=== PATIENT | male | born 1945 | race Caucasian/White ===

== ENCOUNTER → 2018-04-05 11:12 | Outpatient (CLI) | payer MEDICARE, SELFPAY ==
[2018-04-05 17:33] LABS: Absolute Lymphocyte Count 1.78 X10^3/ul (0.83-4.51); Basophil# 0.04 X10^3/uL; Basophil% 0.7 % (0-1); Eosinophil# 0.16 X10^3/uL; Eosinophils% 2.9 % (0-5); Hematocrit 47.8 % (40-54); Hemoglobin 15.4 g/dl (13.0-16.5); Lymphocyte # 1.78 X10^3/ul (4.0); Lymphocyte % 32.2 % (19-41); Mean Corp Hgb Conc 32.2 g/gl (32-36); Mean Corpuscular Hgb 30.2 pg (27.0-32.0); Mean Corpuscular Volume 93.7 fL (80-94); Mean Platelet Vol. 10.3 fl (6.2-12.0); Monocyte# 0.57 X10^3/uL; Monocyte% 10.3 % (0-10); Neutrophil # 2.97 X10^3/uL (2.7-7.7); Neutrophil % 53.7 % (47-70); POSITIVE COUNT NO; POSITIVE DIFFERENTIAL NO; POSITIVE MORPHOLOGY NO; Platelet Count 258 K/mm3 (150-450); RBC Distribution Width CV 12.5 % (11.6-14.6); RBC Distribution Width SD 42.4 fl (35.1-43.9); White Blood Count 5.5 K/mm3 (4.4-11.0)
[2018-04-05 17:50] LABS: Vitamin D,25 Hydroxy 34.5 ng/mL (29.95-100.01)
[2018-04-05 18:52] LABS: ALB/GLOB Ratio 1.2 RATIO (0.9-2.4); AST(SGOT) 27 U/L (15-37); Alanine Aminotransfer ALT/SGPT 28 U/L (16-61); Albumin, Serum 4.1 g/dL (3.2-5.0); Alkaline Phosphatase 55 U/L (45-117); Anion Gap 10 (5-15); BUN 19 mg/dL (7-18); Calcium,Total 9.3 mg/dL (8.5-10.1); Chloride 102 mmol/L (98-107); Cholesterol 190 mg/dL (200); Creatinine, Serum 1.19 mg/dL (0.70-1.30); EST Glomerular Filtration Rate 64 mL/min (>60); Est Glom Filt Rate - Afr Amer 78 mL/min (>60); Globulin 3.3 g/dL (2.2-4.2); Glucose 83 mg/dL (74-106); High Density Lipoprotein 63 mg/dL; Potassium 3.9 mmol/L (3.5-5.1); Protein, Total 7.4 g/dL (6.4-8.2); Sodium Level 141 mmol/L (136-145); Triglycerides 72 mg/dL; Very Low Density Lipoprotein 14 mg/dL (5-40)
--- OUTSIDE RECORDS SUMMARY | 2018-05-29 17:07 | XMS RPT_ITS ---
:1945 Author Organization OHIP Care Team Providers Name Role Phone Zachery Greenberg Attending Unavailable Zachery Greenberg Referring Unavailable Alexandrea, Sera Primary Care Unavailable Zachery Greenberg Consulting Unavailable Nurse, Surgery Attending Unavailable Nadia Adrian Referring Unavailable Darinelel, Sera Attending Unavailable Miedel, Sera Primary Care Unavailable Zachery Greenberg Attending Unavailable Zachery Greenberg Referring Unavailable Alexandrea, Sera Primary Care Unavailable Hudson, Andrey W Attending Unavailable No Doctor Assigned, Nodr Primary Care Unavailable Hudson, Andrey W Attending Unavailable No Doctor Assigned, Nodr Primary Care Unavailable Hudson, Andrey W Admitting Unavailable Hudson, Andrey W Admitting Unavailable Hudson, Andrey W Attending Unavailable No Doctor Assigned, Nodr Primary Care Unavailable Hudson, Andrey W Attending Unavailable No Doctor Assigned, Nodr Primary Care Unavailable Hudson, Andrey W Admitting Unavailable Hudson, Andrey W Admitting Unavailable Hudson, Andrey W Attending Unavailable No Doctor Assigned, Nodr Primary Care Unavailable Hudson, Andrey W Attending Unavailable No Doctor Assigned, Nodr Primary Care Unavailable PROBLEMS PROBLEMS DATE TYPE CONDITION / CODE ATTENDING STATUS SOURCE 04/05/2018 Unknown Z00.00 - Sera Lechuga Active [place] Encounter for [facility] medical Repository examination without abnormal findings / Z00.00(ICD-10) 04/05/2018 Unknown D64.9 - Anemia, Sera Lechuga Active [place] unspecified / Community D64.9(ICD-10) Hospital Repository 04/05/2018 Unknown M41.9 - Miedel, Sera Active [place] Scoliosis, Community unspecified / Hospital M41.9(ICD-10) Repository PROCEDURES PROCEDURES No Procedure Records FoundRESULTS RESULTS OPERATIVE REPORT - Observed: 04/13/2018 Status: F Source: [place] ENDOSCOPY 10:12 AM [facility] REPOSITORY [facility] Medical Records Department [address] [place] [address] Operative Report - Endoscopy MR#: [id number] Acct: [id number] Name: TREVOR MERRITT Rep #: [id number] : 1945 72 From: Zachery Greenberg MD PCP: Sera Lechuga MD Status: REG [facility] Patient Name: Trevor Merritt Procedure Date: 04/13/2018 9:31 AM Date of : 1945 Age: 72 Procedure: Colonoscopy Indications: Screening for colorectal malignant neoplasm Providers: Zachery Greenberg MD Referring MD: Sera Lechuga Medicines: Monitored Anesthesia Care Patient Profile: This is a 72 year old male. Refer to note in patient chart for documentation of history and physical. Last Colonoscopy: more than 10 years ago. Complications: No immediate complications. Procedure: Pre-Anesthesia Assessment: - Prior to the procedure, a History and Physical was performed, and patient medications and allergies were reviewed. The patient's tolerance of previous anesthesia was also reviewed. The risks and benefits of the procedure and the sedation options and risks were discussed with the patient. All questions were answered, and informed consent was obtained. Prior Anticoagulants: The patient has taken no previous anticoagulant or antiplatelet agents. After reviewing the risks and benefits, the patient was deemed in satisfactory condition to undergo the procedure. After I obtained informed consent, the scope was passed under direct vision. Throughout the procedure, the patient's blood pressure, pulse, and oxygen saturations were monitored continuously. The Colonoscope was introduced through the anus and advanced to the cecum, identified by the appendiceal orifice, ileocecal valve and palpation. The colonoscopy was performed without difficulty. The patient tolerated the procedure well. The quality of the bowel preparation was good. Scope In: 9:50:07 AM Scope Withdrawal Time 0 hours 8 minutes 28 seconds Scope Out: 10:05:42 AM Total Procedure Duration Time 0 hours 15 minutes 35 seconds Findings: The entire examined colon appeared normal on direct and retroflexion views. Impression: - The entire examined colon is normal on direct and retroflexion views. - No specimens collected. Recommendation: - Discharge patient to home. - Resume previous diet. - Continue present medications. - Repeat colonoscopy is not recommended due to current age (66 years or older) for screening purposes. Procedure Code(s): --- Professional --- G0121, Colorectal cancer screening; colonoscopy on individual not meeting criteria for high risk Diagnosis Code(s): --- Professional --- Z12.11, Encounter for screening for malignant neoplasm of colon CPT copyright 2017 [employer]. All rights reserved. The codes documented in this report are preliminary and upon bicycle service technician review may be revised to meet current compliance requirements. Zachery Greenberg MD 04/13/2018 10:12:44 AM This report has been signed electronically. Number of Addenda: 0 Note Initiated On: 04/13/2018 9:31 AM 04/13/18 1012 Date Zachery Greenberg MD Cosigner Signature: Date (if indicated) CC: Zachery Greenberg MD; Sera Lechuga MD Date Dictated: 04/13/18930 Date Transcribed: Safety Director: MICHAEL Signed HISTORY AND PHYSICAL Observed: 04/13/2018 Status: F Source: [place] EXAM 9:42 AM [facility] REPOSITORY [facility] Medical Records Department [address] [place] [address] [place] [address] History and Physical 04/13/18 0941 MR#: [id number] Acct: [id number] Name: TREVOR MERRITT Rep #: [id number] : 1945 72 From: Zachery Greenberg MD PCP: Sera Lechuga MD Status: REG [facility] Y Location: [place] [address] History of Present Illness Date of Admission: 04/13/18 The patient is a 72 year old M here for screening colonoscopy. His last colonoscopy was 12 years ago. There were no polyps. He has no family history of colon cancer. He is not having any abdominal pain or blood in his stool. Past Medical/Surgical History - Planned Operation Planned Operative Procedure/s: CSCOPE OPEN ACCESS Date of Operative Procedure: 04/13/18 Permit Signed: No S.O.S: No Is This Patient Having a Total Joint: No - Previous Hospitalizations/Surgeries HX Hospitalizations: No HX of Surgeries: BILAT HERNIA REPAIR. LEFT INGUINAL HERNIA REPAIR. JAW FX. CSCOPE. MICRODISKECTOMY. FX COLLARBONE Any Problems With Anesthesia: Yes - TROUBLES WITH URINATION AFTER You/Your Family Experience Fever (Hyperthermia) With Anes: No Cholinesterase deficiency: No - Cardiovascular Hx Chest Pain within Last 2 months: No Hx of Irregular Heartbeat and/or Afib: No Hx Heart Attack: No Hx Congestive Heart Failure: No Hx Rheumatic Fever: No Hx Hypertension: No Hx Internal Defibrillator: No Hx Pacemaker: No Hx Cardiac Catheterization: No Hx Cardiac Surgery/Stents/Etc.: No Hx Stress Test: No HX Edema: No Hx Pain in Legs when Walking/Leg Cramps: Yes - OCC CRAMPS - Respiratory Chronic Cough: No HX of Shortness of Breath: No Hoarseness: No Hx Chronic Obstructive Pulmonary Disease (COPD): No Hx Asthma: No Hx Emphysema: No Hx Sleep Apnea: No Hx Oxygen Use at Home: No Hx Respiratory Tract Infection/Cold (presently): No Do You Snore Loudly (louder than talking or can be heard): Yes Do You Often Feel Tired/ Fatigued/ Sleepy Dring Daytime?: No Has Anyone Observed You Stop Breathing During Sleep?: No Result (for STOP score): Negative Hx Smoking: Yes - QUIT 1969 Smoking Status: Former smoker - Gastrointestinal Hx Gastroesophageal Reflux: No Hx Gastrointestinal Disorders: No Hx Gastrointestinal Bleed: No Hx Ulcer: No Hx Hiatal Hernia: No Difficulty Chewing/Swallowing: No Recent Onset of Swallowing Problems: No Special diet followed at home: No Hx Unplanned Weight Loss of 20#: No HX Unplanned Weight Gain of 20#: No - Neurological Hx Seizures: No HX Syncope/Blackout Spells/Unconsciousness: No Hx CVA/Stroke: No Hx Transient Ischemic Attacks (TIA): No Hx Multiple Sclerosis: No Hx Parkinson's Disease: No Hx Head/Neck Injury: No Hx Headaches: No Hx Back Injury/Pain: Yes - MICRODISKECTOMY IN THE PAST/OCC BACK PAIN Recent Onset of Speech Difficulty: No Restless Legs: No Does patient have nerve stimulator: No Patient instructed to have device shut off: No Rep notified?: No - Blood Disorder Hx Leukemia: No Bleeding Tendencies: No Hx Deep Vein Thrombosis: No Hx High Cholesterol: No Blood Transmitted Disease: No Hx Hepatitis: No Hx Cirrhosis: No Hx Anemia: Yes - IN THE PAST Hx Blood Disorders: No - Genitourinary Hx Renal Disease: No - ENLARGED PROSTATE - Musculoskeletal Hx Arthritis: No Hx Rheumatoid Arthritis: No Hx Gout: No Recent Onset of an Orthopedic Problem: No - Endocrine Hx Diabetes: No Thyroid Disease: No Hx Steroid Therapy: No - Psycho/Social Hx Substance Use: No Hx Alcohol Use: Yes - OCC Hx Anxiety: No Hx Depression: No Mental Illness: No Hx Dementia: No - Miscellaneous Hx Cancer: No Recent Exposure to Contagious Disease: No Active MRSA: No Hx of C-Diff: No Any Loose Teeth: No Allergies bisacodyl [From Dulcolax (bisacodyl)] Allergy (Mild, Verified 04/12/18 16:12) itching polyethylene glycol 3350 [From Miralax] Allergy (Mild, Verified 04/12/18 16:12) itching hydrocodone [From [place]] Allergy (Verified 04/12/18 09:26) Hives - Discharge Is Pt Admitted From a Skilled Nursing, or a [facility]: No Who Could Help: After D/C, Where Do you Plan to Go: Return Home - From the PAT History Number of Risk Factors: 3 - Physical Exam General: Alert, Oriented x3 Lungs: Normal air movement Cardiovascular: Regular rate, Regular Rhythm Abdomen: Soft, Non Tender, Non-Distended Vital Signs Temp Pulse Resp BP Pulse Ox 97.8 F 72 18 125/69 H 99 04/13/18 08:36 04/13/18 08:36 04/13/18 08:36 04/13/18 08:36 04/13/18 08:36 Oxygen Delivery Method Room Air Weight: 148 lb 9.465 oz Body Mass Index (BMI) 21.6 Assessment/Plan 72-year-old male for screening colonoscopy 1. I explained endoscopy in detail to the patient. I explained the risks including but not limited to stroke or heart attack with anesthesia, perforation of the GI tract, bleeding, infection. I explained that any of these could necessitate further emergency surgery. The patient understands and all questions were answered sufficiently. The patient wishes to proceed with procedure. Zachery Greenberg MD Pager: [facility] [address] [place] [address] [address] [place] [address] Office: Surgery Risks - Colonoscopy Risks Include but are not Limited To: Risks include but are not limited to: Bleeding, perforation requiring further surgery, inability to complete colonoscopy requiring barium enema. 04/13/18 0942 <Electronically signed by Zachery Greenberg MD> Date Zachery Greenberg MD Cosigner Signature: Date (if applicable) CC: Zachery Greenberg MD; Sera Lechuga MD Signed CBC W/DIFF, AUTOMATED Collected: 04/05/2018 Status: F Source: [place] 11:16 AM [facility] REPOSITORY TYPE CODE TESTS RESULT OUT OF RANGE REFERENCE UNITS LAB L100.1000 4.4-11.0 K/mm3 Normal WBC 5.5 LAB L100.1200 4.6-6.2 M/mm3 Normal RBC 5.10 LAB L100.1300 13.0-16.5 g/dl Normal HGB 15.4 LAB L100.1400 40-54 % Normal HCT 47.8 LAB L100.1500 80-94 fL Normal MCV 93.7 LAB L100.1600 27.0-32.0 pg Normal MCH 30.2 LAB L100.1700 32-36 g/gl Normal MCHC 32.2 LAB L100.1810 11.6-14.6 % Normal RDW CV 12.5 LAB L100.1820 35.1-43.9 fl Normal RDW SD 42.4 LAB L100.1900 150-450 K/mm3 Normal PLT 258 LAB L100.2000 6.2-12.0 fl Normal MPV 10.3 LAB L100.2100 47-70 % Normal NEUT% 53.7 LAB L100.2200 19-41 % Normal LY% 32.2 LAB L100.2300 0-10 % High MONO% 10.3 LAB L100.2400 0-5 % Normal EO% 2.9 LAB L100.2500 0-1 % Normal BASO% 0.7 LAB L100.2550 0.0-0.9 % Normal IM GRAN % 0.200 Result Comment: IG% - Immature Granulocytes (promyelocytes, myelocytes and metamyelocytes) > 1% indicates that a LEFT SHIFT is Present. LAB L100.2620 2.0-7.7 X10 3/uL Normal Absolute Neut 3.0 LAB L100.2720 0.83-4.51 X10 3/ul Normal Absolute Lymph 1.78 Performed By: #### L100.0100 #### [facility] [address] [facility] [place], [address] VITAMIN D,25 HYDROXY Collected: 04/05/2018 Status: F Source: [place] 11:16 AM [facility] REPOSITORY TYPE CODE TESTS RESULT OUT OF RANGE REFERENCE UNITS LAB L506.1000 29.95-100.01 ng/mL Normal Vitamin D 34.5 25-OH Result Comment: Vitamin D 25(OH) Status Range Deficiency <20 ng/mL (50nmol/L) Insuffciency 20 - 30 ng/mL (50 - 75 nmol/L) Sufficiency 30 - 100 ng/mL (75 - 250 nmol/L) Toxicity >100 ng/mL (>250 nmol/L) Performed By: #### L506.1000 #### [facility] [address] [facility] [place], [address] COMPREHENSIVE METABOLIC Collected: 04/05/2018 Status: F Source: [place] CORTEZ 11:16 AM [facility] REPOSITORY TYPE CODE TESTS RESULT OUT OF RANGE REFERENCE UNITS LAB L501.0100 74-106 mg/dL Normal GLU 83 Result Comment: Please note revised GLUCOSE reference range effective 2017. LAB L501.1000 7-18 mg/dL High BUN 19 LAB L501.1100 0.70-1.30 mg/dL Normal CREAT,SERUM 1.19 Result Comment: The validity of the calculated GFR AND GFRAA in patients over 70 years has not been determined. Clinical correlation is essential. LAB L501.1110 >60 mL/min Normal EST GFR 64 Result Comment: Non- GFR Calc LAB L501.1115 >60 mL/min Normal EST GFR - AA 78 Result Comment: GFR Calc LAB L501.1300 10-20 RATIO Normal BUN/CRE 16.0 LAB L501.1500 6.4-8.2 g/dL T Normal PROT 7.4 LAB L501.1800 3.2-5.0 g/dL Normal ALB 4.1 LAB L501.1950 2.2-4.2 g/dL Normal GLOB 3.3 LAB L501.2000 0.9-2.4 RATIO Normal A/G 1.2 LAB L501.2200 8.5-10.1 mg/dL CA Normal 9.3 LAB L501.4100 15-37 U/L Normal AST 27 LAB L501.4305 45-117 U/L Normal ALK P 55 LAB L501.4405 16-61 U/L Normal ALT 28 LAB L501.4600 0.20-1.00 mg/dL T Normal BILI 0.80 LAB L501.5300 136-145 mmol/L NA Normal 141 LAB L501.5600 3.5-5.1 mmol/L K Normal 3.9 LAB L501.5900 98-107 mmol/L CL Normal 102 LAB L501.6100 21.0-32.0 mmol/L Normal CO2 29.0 LAB L501.6200 5-15 Normal GAP 10 Performed By: #### L500.4050, L500.4100 #### [facility] [address] [place], [address] LIPID PROFILE Collected: 04/05/2018 Status: F Source: [place] 11:16 AM [facility] REPOSITORY TYPE CODE TESTS RESULT OUT OF RANGE REFERENCE UNITS LAB L501.4900 200 mg/dL Normal CHOL 190 Result Comment: <200 mg/dL Desirable 200-240 mg/dL Borderline >240 mg/dL High Risk LAB L501.5000 mg/dL Normal TRIG 72 Result Comment: The drugs N-Acetylcysteine and Metamizole may falsely depress this assay. Serum Triglycerides Reference Interval Normal <150 mg/dL Borderline high 150 - 199 mg/dL High 200 - 499 mg/dL Very High > or = 500 mg/dL LAB L501.6400 mg/dL Normal HDL 63 Result Comment: The drugs N-Acetylcysteine and Metamizole may falsely depress this assay. Reference Range HDL <40 mg/dL Low HDL Cholesterol HDL >or= 60 mg/dL High HDL Cholesterol LAB L501.6500 0-130 mg/dL Normal LDL 113 LAB L501.6600 5-40 mg/dL Normal VLDL 14 Performed By: #### L500.4050, L500.4100 #### [facility] [address] [place], [place], [address] PSA TOTAL Collected: 11/11/2017 Status: F Source: [place] 8:21 AM [facility] REPOSITORY TYPE CODE TESTS RESULT OUT OF RANGE REFERENCE UNITS LAB 40957695(LO ng/mL INC) Normal PSA Total 5.34 Result Comment: AGE-SPECIFIC REFERENCE RANGES FOR SERUM PSA REFERENCE RANGE NG/ML AGE ASIANS BLACKS WHITE 40-49 0- 2 0-2 0-2.5 50-59 0- 3 0-4 0-3.5 60-69 0- 4 0-4.5 0-4.5 70-79 0- 5 0-5.5 0-6.5 PSA INCREASES WITH AGE, RACE, AND EJACULATION WITHIN 48 HRS. [facility] VOL24,NO.2, , PG.339 Performed By: #### [id number] #### [facility] [address] [place] [address] PSA T+% FR Collected: 04/22/2017 Status: F Source: [place] 8:12 AM [facility] REPOSITORY TYPE CODE TESTS RESULT OUT OF RANGE REFERENCE UNITS LAB 13782758(LO ng/mL INC) Normal PSA Tot. 5.9 Result Comment: No patient age and/or gender provided Age Male Female All Ages 0.0 - 4.0 Not Estab. Jake ECLIA methodology. According to the [employer], Serum PSA should decrease and remain at undetectable levels after radical prostatectomy. The AUA defines biochemical recurrence as an initial PSA value 0.2 ng/mL or greater followed by a subsequent confirmatory PSA value 0.2 ng/mL or greater. Values obtained with different assay methods or kits cannot be used interchangeably. Results cannot be interpreted as absolute evidence of the presence or absence of malignant disease. LAB 80282107(LOINC) N/A ng/mL Normal PSA Free 1.30 Result Comment: Jake ECLIA methodology. LAB 15874665(LOINC) % Normal % Free 22.0 PSA Result Comment: The table below lists the probability of prostate cancer for men with non-suspicious HAILEY results and total PSA between 4 and 10 ng/mL, by patient age (Leela et al, ARIAS 1998, 279:1542). % Free PSA 50-64 yr 65-75 yr 0.00-10.00% 56% 55% 10.01-15.00% 24% 35% 15.01-20.00% 17% 23% 20.01-25.00% 10% 20% >25.00% 5% 9% Please note: Leela et al did not make specific recommendations regarding the use of percent free PSA for any other population of men. Performed At: [facility] [id number] Michelet Ibarra PhD Ph:[phone] Performed By: #### [id number] #### [place] [address] ALLERGIES ALLERGIES DATE TYPE / CODE NAME / CODE REACTION SEVERITY SOURCE 04/12/2018 Drug bisacodyl/C22606425 Itching [place] Allergy/416 2(RXNORM) [place] [id number]([facility] CT) Repository 04/12/2018 Drug hydrocodone/V371359 Hives Unknown [place] Allergy/416 554(RXNORM) [place] [id number]([facility] ED CT) Repository 04/12/2018 Drug polyethylene glycol Itching [place] Allergy/416 3350/J222849362(RXN Community 988601([facility] ED CT) Repository Drug/851694 [facility] 003([facility]) System Repository ENCOUNTERS ENCOUNTERS ADMIT/DISCHARGE ACCOUNT NUMBER ADMITTING ENCOUNTER LOCATION SOURCE CLASS 04/13/2018 [id number] Ambulatory BMSBuilding: [place] BMS.CF.[facility] Repository 04/13/2018/04/13/20 [id number] Amb[place] ding:ENRoom: Repository AC16 04/05/2018 [id number] Ambulatory [facility] ding:BFHLAB Repository 04/05/2018/04/05/20 [id number] Ambulatory BMSBuilding: [place] 18 BMS.[facility] Repository 12/07/2017 [id number] [facility] ing:AMUAshla nd 12/07/2017/12/08/19 [id number] Andrey [facility] Amb[facility] [address] [facility] Repository ing:AMUAshla ndRoom: Room 3 11/11/2017/11/12/19 [id number] Andrey Hudson [address] ding[facility] 11/11/[id number] Repository 06/08/2017/06/08/19 [id number] Andrey [facility] Ambulatory [address] [place] Repository ing:AMUAshla ndRoom: Room 1 04/22/2017/04/22/20 [id number] Andrey Hudson [address] ding[facility] Repository 04/22/2017/04/22/20 [id number] Ambulatory [address] [place] Repository ing:AMUAshla ndRoom: Room 2 PAYERS PAYERS ENCOUNTER GUARANTOR PAYER SUBSCRIBER SOURCE 04/13/2018 TREVOR L Primary TREVOR L [place] [id number] Insurance:MEDICARE AMSTUTZDOB: Community [address] [facility] [id number] Hospital [address] [place] [address], Number: Repository [place] [address]Aof: [id number] Date:2018-04-05 () 04/13/2018 Secondary TREVOR L [place] Insurance:TRANSAMERIC AMSTUTZDOB: Community APolicy Number: [id number] Hospital [id number] Repository Date:[id number] [address] [place] [address], [place] [address]GT: 04/13/2018 Tertiary NOT GIVENUNK [place] Insurance:SELF PAY [facility] Number: Effective Repository Date:2018-04-13 04/13/2018 TREVOR L Primary TREVOR L [place] [id number] Insurance:MEDICARE AMSTUTZDOB: Community [address] [facility] [id number] Hospital [address] [place] [address], Number: Repository [place] [address]Tqy: [id number] Date:2018-04-05 () 04/13/2018 Secondary TREVOR L [place] Insurance:TRANSAMERIC AMSTUTZDOB: Community APolicy Number: [id number] Hospital [id number] Repository Date:[id number] [address] [place] [address]SM: 04/13/2018 Tertiary NOT GIVENUNK [place] Insurance:SELF PAY [facility] Number: Effective Repository Date:2018-04-05 04/05/2018 TREVOR L Primary TREVOR L [place] [id number] Insurance:MEDICARE AMSTUTZDOB: Community [address] A [id number] [place] Number: Repository [address]Tqz: [id number] [phone] () e Date:2018-04-05 04/05/2018 Secondary NOT GIVENUNK [place] Insurance:SELF PAY [facility] INSURANCEPolicy Hospital Number: Effective Repository Date:2018-04-05 04/05/2018 TREVOR L Primary TREVOR L [place] [id number] Insurance:MEDICARE AMSTUTZDOB: [facility] [address] [facility] PART A [facility] [id number] [facility] [place] Number: Repository [id number]: [phone] [id number] [phone] (HP) e Date:2018-04-05 04/05/2018 Secondary NOT GIVENUNK [place] Insurance:SELF PAY [facility] Number: Effective Repository Date:2018-04-05 12/07/2017 TREVOR L Primary TREVOR L [place] AMSTUTZDOB: Insurance:1500 AMSTUTZDOB: [facility] [id number] BOX MEDICARE [id number] System [id number] [place] PRIMARYPolicy Number: [id number] Repository [facility], Effective [place] [id number]: Date:2017-12-07 - [facility] [place], [id number] [place] [id number]: (HP) Name:CD:[id number] [address]FKDGCESJJ, ()Tel: 000 [place] [address]BD: 000-0000 (WP) 12/07/2017 Secondary TREVOR Ureña Insurance:1500 AMSTUTZDOB: [facility] [id number] System LIFE INSURANCE [address] Repository COMPANYPolicy Number: [place] Effective [facility] [place], Date:2017-12-07 - [place] [id number]: [id number] Name:CD:[id number] (HP)Tel: (000) [address] [place], 000-0000 (WP) [place] [address]RL: 12/07/2017 TREVOR L Primary TREVOR L [place] AMSTUTZDOB: Insurance:1500 AMSTUTZDOB: [facility] [id number] BOX MEDICARE [id number] System [id number] [address] PRIMARYPolicy Number: [id number] Repository [place], Effective [place] [id number]: Date:2017-06-08 - [place], [id number] [place] [id number]: (HP) Name:CD:[id number] [address] [address]USABYIJGK, (HP)Tel: (000) [place] [address]ON: 000-0000 (WP) 12/07/2017 Secondary TREVOR L [place] Insurance:1500 AMSTUTZDOB: [facility] [id number] System LIFE INSURANCE [address] Repository COMPANYPolicy Number: [id number] Effective ZAHRA DIAZ, Date:2017-06-08 - [place] [id number]: [id number] Name:CD:[id number] ()Tel: (000) [address], 000-0000 (WP) [place] [address]NY: 11/11/2017 [facility] AMSTUTZDOB: Insurance:MedicarePol AMSTUTZDOB: [facility] [id number] BOX icy Number: Effective [id number] System [id number] [place] Date:2017-11-11 - [address] Repository [place], [id number] [place] [id number]: Name:CD:[id number] B[address] ROADCHIQUISUN[address] [place], [address]38XWMRAVOQRY, [place] [id number]: (HP) [id number]: [phone] (HP) (WP) 11/11/2017 Secondary TREVOR L [place] Insurance:COMMERCIAL AMSTUTZDOB: [facility] INSURANCEPolicy [id number] System Number: Effective [address] Repository Date:2017-11-11 - [place] [id number] [place], Name:CD:[id number] BOX [place] [id number]: [address]en [place] [address]OH: (865) (HP) 000-0000 (WP) 11/11/2017 [facility] [facility] AMSTUTZDOB: Insurance:MedicarePol AMSTUTZDOB: Hospitals [id number] BOX icy Number: [id number] Repository [address] [place], [id number] [address] [place] [id number]: Date:Plan Name:Kathy DIAZ [place] A [id number]: (CD) (HP) 11/11/2017 Secondary [facility] Insurance:MedicarePol AMSTUTZDOB: Hospitals icy Number: [id number] Repository [id number] [address] Date:Plan Name:Kathy DIAZ [place] B [id number]: (HP) 11/11/2017 Tertiary [facility] Insurance:CommercialP AMSTUTZDOB: Hospitals olicy Number: [id number] Repository [id number] [address] Date:Plan [place], [place] Name:HealthPO [id number]: Brady7MIMI MOHAMUD [id number]: [phone]) (HX) [phone] 06/08/2017 [facility] AMSTUTZDOB: Insurance:1500 AMSTUTZDOB: [facility] [id number] BOX MEDICARE [id number] System [id number] [place] PRIMARYPolicy Number: [id number] Repository [address] [place], Effective [place] [id number]: Date:2017-04-22 - [address] [place], [id number] [place] [id number]: (HP) Name:CD:[id number] O [address]BAHOXEIVL, (HP)Tel: (117) [place] [address]KH: [phone] (WP) 06/08/2017 Secondary TREVOR [facility] Insurance:1500 AMSTUTZDOB: [facility] [id number] System LIFE INSURANCE [address] Repository COMPANYPolicy Number: [place] Effective [address] [place], Date:2017-04-22 - [place] [id number]: [id number] Name:CD:[id number] (HP)Tel: (816) [address], [phone] (WP) [place] [address]NV: 04/22/2017 [facility] AMSTUTZDOB: Insurance:MedicarePol AMSTUTZDOB: [facility] [id number] BOX icy Number: Effective [id number] System [id number] [place] Date:2017-04-22 - [address] Repository [address] [place], [id number] [place] [id number]: Name:CD:[id number] [address] [place], 612091ATYFGVHLIM, [place] [id number]: (HP) [id number]: [phone] (HP) (WP) 04/22/2017 Secondary TREVOR [facility] Insurance:COMMERCIAL AMSTUTZDOB: [facility] INSURANCEPolicy [id number] System Number: Effective [address] Repository Date:2017-04-22 - [place] [id number] [address] [place], Name:CD:[id number] BOX [place] [id number]: [address], [place] [address]QL: [phone]) (HP) [phone] (WP) 04/22/2017 TREVOR L Primary [facility] AMSTUTZDOB: Insurance:1500 AMSTUTZDOB: [facility] [id number] BOX MEDICARE [id number] System [id number] SAL PRIMARYPolicy Number: [id number] Repository ZAHRA DIAZ, Effective [place] [id number]: Date:2016-10-24 - [address] [place], 9974-11-47Wwnj [place] [id number]: (HP) Name:CD:[id number] O [address]VIZMGXFOP, (HP)Tel: (767) [place] [address]AA: [phone] (WP) 04/22/2017 Secondary [facility] Insurance:1500 AMSTUTZDOB: [facility] [id number] System LIFE INSURANCE [address] Repository COMPANYPolicy Number: SAL Effective ZAHRA DIAZ, Date:2016-10-24 - [place] [id number]: [id number] Name:CD:[id number] (HP)Tel: (803) [address] [place], [phone] (WP) [place] [address]IF:
== END ==
PROVIDERS: Family Provider Family Medicine; PCP Family Medicine; Visit Provider Family Medicine
DX: Z00.00 Encounter for general adult medical examination without abnormal findings (principal); D64.9 Anemia, unspecified; M41.9 Scoliosis, unspecified
CPT/HCPCS: 36415; 80053; 80061; 82306; 85025

== ENCOUNTER 2018-04-13 08:09 | Day surgery (SDC) | payer MEDICARE, OTHER, SELFPAY ==
[2018-04-13 08:36] VITALS: BP 125/69; PULSE 72; RESP 18; TEMP 36.6; O2SAT 99; BMI 21.6
--- NOTE | 2018-04-13 09:42 | HP.PCM_ITS ---
History of Present Illness Date of Admission: 04/13/18 The patient is a 72 year old M here for screening colonoscopy. His last colonoscopy was 12 years ago. There were no polyps. He has no family history of colon cancer. He is not having any abdominal pain or blood in his stool. Past Medical/Surgical History - Planned Operation Planned Operative Procedure/s: CSCOPE OPEN ACCESS Date of Operative Procedure: 04/13/18 Permit Signed: No S.O.S: No Is This Patient Having a Total Joint: No - Previous Hospitalizations/Surgeries HX Hospitalizations: No HX of Surgeries: BILAT HERNIA REPAIR. LEFT INGUINAL HERNIA REPAIR. JAW FX. CSCOPE. MICRODISKECTOMY. FX COLLARBONE Any Problems With Anesthesia: Yes - TROUBLES WITH URINATION AFTER You/Your Family Experience Fever (Hyperthermia) With Anes: No Cholinesterase deficiency: No - Cardiovascular Hx Chest Pain within Last 2 months: No Hx of Irregular Heartbeat and/or Afib: No Hx Heart Attack: No Hx Congestive Heart Failure: No Hx Rheumatic Fever: No Hx Hypertension: No Hx Internal Defibrillator: No Hx Pacemaker: No Hx Cardiac Catheterization: No Hx Cardiac Surgery/Stents/Etc.: No Hx Stress Test: No HX Edema: No Hx Pain in Legs when Walking/Leg Cramps: Yes - OCC CRAMPS - Respiratory Chronic Cough: No HX of Shortness of Breath: No Hoarseness: No Hx Chronic Obstructive Pulmonary Disease (COPD): No Hx Asthma: No Hx Emphysema: No Hx Sleep Apnea: No Hx Oxygen Use at Home: No Hx Respiratory Tract Infection/Cold (presently): No Do You Snore Loudly (louder than talking or can be heard): Yes Do You Often Feel Tired/ Fatigued/ Sleepy [place] Daytime?: No Has Anyone Observed You Stop Breathing During Sleep?: No Result (for STOP score): Negative Hx Smoking: Yes - QUIT 1969 Smoking Status: Former smoker - Gastrointestinal Hx Gastroesophageal Reflux: No Hx Gastrointestinal Disorders: No Hx Gastrointestinal Bleed: No Hx Ulcer: No Hx Hiatal Hernia: No Difficulty Chewing/Swallowing: No Recent Onset of Swallowing Problems: No Special diet followed at home: No Hx Unplanned Weight Loss of 20#: No HX Unplanned Weight Gain of 20#: No - Neurological Hx Seizures: No HX Syncope/Blackout Spells/Unconsciousness: No Hx CVA/Stroke: No Hx Transient Ischemic Attacks (TIA): No Hx Multiple Sclerosis: No Hx Parkinson's Disease: No Hx Head/Neck Injury: No Hx Headaches: No Hx Back Injury/Pain: Yes - MICRODISKECTOMY IN THE PAST/OCC BACK PAIN Recent Onset of Speech Difficulty: No Restless Legs: No Does patient have nerve stimulator: No Patient instructed to have device shut off: No Rep notified?: No - Blood Disorder Hx Leukemia: No Bleeding Tendencies: No Hx Deep Vein Thrombosis: No Hx High Cholesterol: No Blood Transmitted Disease: No Hx Hepatitis: No Hx Cirrhosis: No Hx Anemia: Yes - IN THE PAST Hx Blood Disorders: No - Genitourinary Hx Renal Disease: No - ENLARGED PROSTATE - Musculoskeletal Hx Arthritis: No Hx Rheumatoid Arthritis: No Hx Gout: No Recent Onset of an Orthopedic Problem: No - Endocrine Hx Diabetes: No Thyroid Disease: No Hx Steroid Therapy: No - Psycho/Social Hx Substance Use: No Hx Alcohol Use: Yes - OCC Hx Anxiety: No Hx Depression: No Mental Illness: No Hx Dementia: No - Miscellaneous Hx Cancer: No Recent Exposure to Contagious Disease: No Active MRSA: No Hx of C-Diff: No Any Loose Teeth: No Allergies bisacodyl [From Dulcolax (bisacodyl)] Allergy (Mild, Verified 04/12/18 16:12) itching polyethylene glycol 3350 [From Miralax] Allergy (Mild, Verified 04/12/18 16:12) itching hydrocodone [From [place]] Allergy (Verified 04/12/18 09:26) Hives - Discharge Is Pt Admitted From a Retirement, or a Residential: No Who Could Help: After D/C, Where Do you Plan to Go: Return Home - From the PAT History Number of Risk Factors: 3 - Physical Exam General: Alert, Oriented x3 Lungs: Normal air movement Cardiovascular: Regular rate, Regular Rhythm Abdomen: Soft, Non Tender, Non-Distended Vital Signs Temp Pulse Resp BP Pulse Ox 97.8 F 72 18 125/69 H 99 04/13/18 08:36 04/13/18 08:36 04/13/18 08:36 04/13/18 08:36 04/13/18 08:36 Oxygen Delivery Method Room Air Weight: 148 lb 9.465 oz Body Mass Index (BMI) 21.6 Assessment/Plan 72-year-old male for screening colonoscopy 1. I explained endoscopy in detail to the patient. I explained the risks including but not limited to stroke or heart attack with anesthesia, perforation of the GI tract, bleeding, infection. I explained that any of these could necessitate further emergency surgery. The patient understands and all questions were answered sufficiently. The patient wishes to proceed with procedure. Zachery Greenberg MD Pager: [facility] [address] [place] [address] [address] [place] [address] Office: Surgery Risks - Colonoscopy Risks Include but are not Limited To: Risks include but are not limited to: Bleeding, perforation requiring further surgery, inability to complete colonoscopy requiring barium enema.
[2018-04-13 10:09] VITALS: BP 125/69; BP 84/54; PULSE 66; RESP 16; TEMP 36.3; O2SAT 93
[2018-04-13 10:10] VITALS: BP 125/69; BP 83/54; PULSE 64; RESP 16; O2SAT 94
--- NOTE | 2018-04-13 10:12 | OP.ENDO_ITS ---
Patient Name: Dorian Merritt Procedure Date: 04/13/2018 9:31 AM Date of : 1945 Age: 72 Procedure: Colonoscopy Indications: Screening for colorectal malignant neoplasm Providers: Zachery Greenberg MD Referring MD: Sera Lechuga Medicines: Monitored Anesthesia Care Patient Profile: This is a 72 year old male. Refer to note in patient chart for documentation of history and physical. Last Colonoscopy: more than 10 years ago. Complications: No immediate complications. Procedure: Pre-Anesthesia Assessment: - Prior to the procedure, a History and Physical was performed, and patient medications and allergies were reviewed. The patient's tolerance of previous anesthesia was also reviewed. The risks and benefits of the procedure and the sedation options and risks were discussed with the patient. All questions were answered, and informed consent was obtained. Prior Anticoagulants: The patient has taken no previous anticoagulant or antiplatelet agents. After reviewing the risks and benefits, the patient was deemed in satisfactory condition to undergo the procedure. After I obtained informed consent, the scope was passed under direct vision. Throughout the procedure, the patient's blood pressure, pulse, and oxygen saturations were monitored continuously. The Colonoscope was introduced through the anus and advanced to the cecum, identified by the appendiceal orifice, ileocecal valve and palpation. The colonoscopy was performed without difficulty. The patient tolerated the procedure well. The quality of the bowel preparation was good. Scope In: 9:50:07 AM Scope Withdrawal Time 0 hours 8 minutes 28 seconds Scope Out: 10:05:42 AM Total Procedure Duration Time 0 hours 15 minutes 35 seconds Findings: The entire examined colon appeared normal on direct and retroflexion views. Impression: - The entire examined colon is normal on direct and retroflexion views. - No specimens collected. Recommendation: - Discharge patient to home. - Resume previous diet. - Continue present medications. - Repeat colonoscopy is not recommended due to current age (66 years or older) for screening purposes. Procedure Code(s): --- Professional --- G0121, Colorectal cancer screening; colonoscopy on individual not meeting criteria for high risk Diagnosis Code(s): --- Professional --- Z12.11, Encounter for screening for malignant neoplasm of colon CPT copyright 2017 [employer] [place] [employer] [employer]. All rights reserved. The codes documented in this report are preliminary and upon molder machine tender review may be revised to meet current compliance requirements. Zachery Greenberg MD 04/13/2018 10:12:44 AM This report has been signed electronically. Number of Addenda: 0 Note Initiated On: 04/13/2018 9:31 AM
[2018-04-13 10:15] VITALS: BP 104/68; BP 125/69; PULSE 65; RESP 16; O2SAT 94
[2018-04-13 10:34] VITALS: BP 118/67; BP 125/69; PULSE 53; RESP 16; TEMP 36.2; O2SAT 98
[2018-04-13 11:02] VITALS: BP 125/69
--- OUTSIDE RECORDS SUMMARY | 2018-05-30 06:05 | XMS RPT_ITS ---
:1945 Author Organization OHIP Care Team Providers Name Role Phone Zachery Greenberg Attending Unavailable Zachery Greenberg Referring Unavailable Miedel, Sera Primary Care Unavailable Zachery Greenberg Attending Unavailable Zachery Greenberg Referring Unavailable Miedel, Sera Primary Care Unavailable Zachery Greenberg Consulting Unavailable Miedel, Sera Attending Unavailable Miedel, Sera Primary Care Unavailable Nurse, Surgery Attending Unavailable Nadia Adrian Referring Unavailable Andrey Hudson Attending Unavailable No Doctor Assigned, Nodr Primary Care Unavailable HudsonAndrey santos W Admitting Unavailable HudsonAndrey Attending Unavailable No Doctor Assigned, Nodr Primary Care Unavailable HudsonAndrey W Admitting Unavailable HudsonAndrey W Admitting Unavailable HudsonAndrey W Attending Unavailable No Doctor Assigned, Nodr Primary Care Unavailable Andrey Hudson W Attending Unavailable No Doctor Assigned, Nodr Primary Care Unavailable HudsonAndrey santos W Admitting Unavailable HudsonAndrey W Attending Unavailable Darinelel, Sera E Primary Care Unavailable PROBLEMS PROBLEMS DATE TYPE CONDITION / CODE ATTENDING STATUS SOURCE 04/05/2018 Unknown Z00.00 - Sera Lechuga Active [place] Encounter for [facility] medical Repository examination without abnormal findings / Z00.00(ICD-10) 04/05/2018 Unknown D64.9 - Anemia, Sera Lechuga Active [facility] unspecified / Community D64.9(ICD-10) Hospital Repository 04/05/2018 Unknown M41.9 - KatherynedelSera Active [place] Scoliosis, Community unspecified / Hospital M41.9(ICD-10) Repository PROCEDURES PROCEDURES No Procedure Records FoundRESULTS RESULTS PSA TOTAL Collected: 05/10/2018 Status: F Source: [place] 8:46 AM [facility] REPOSITORY TYPE CODE TESTS RESULT OUT OF RANGE REFERENCE UNITS LAB 49193669(LO ng/mL INC) Normal PSA Total 5.91 Result Comment: AGE-SPECIFIC REFERENCE RANGES FOR SERUM PSA REFERENCE RANGE NG/ML AGE ASIANS BLACKS WHITE 40-49 0- 2 0-2 0-2.5 50-59 0- 3 0-4 0-3.5 60-69 0- 4 0-4.5 0-4.5 70-79 0- 5 0-5.5 0-6.5 PSA INCREASES WITH AGE, RACE, AND EJACULATION WITHIN 48 HRS. [facility] DANIELA VOL24,NO.2, , PG.339 Performed By: #### [id number] #### MELIZA [employer] [address] [place], [place] [address] OPERATIVE REPORT - Observed: 04/13/2018 Status: F Source: [facility] ENDOSCOPY 10:12 AM [facility] REPOSITORY [facility] Medical Records Department [address] [place] [address]896 Operative Report - Endoscopy MR#: [id number] Acct: [id number] Name: TREVOR MERRITT Rep #: [id number] : 1945 72 From: Zachery Greenberg MD PCP: Sera Lechuga MD Status: [facility] Patient Name: Trevor Merritt Procedure Date: 04/13/2018 [...] malignant neoplasm of colon CPT copyright 2017 [employer]. All rights reserved. The codes documented in this report are preliminary and upon shell maker lockstitch review may be revised to meet current compliance requirements. Zachery Greenberg MD 04/13/2018 10:12:44 AM This report has been signed electronically. Number of Addenda: 0 Note Initiated On: 04/13/2018 9:31 AM 04/13/18 1012 Date Zachery Greenberg MD Cosigner Signature: Date (if indicated) CC: Zachery Greenberg MD; Sera Lechuga MD Date Dictated: 04/13/18 0931 Date Transcribed: Fly Worker: AC Signed HISTORY AND PHYSICAL Observed: 04/13/2018 Status: F Source: [facility]RE[facility] EXAM 9:42 AM [facility] REPOSITORY [facility] Medical Records Department [address] [place] [address] [place] [address] History and Physical 04/13/18 09 MR#: [id number] Acct: [id number] Name: TREVOR MERRITT Rep #: [id number] : 1945 72 From: Zachery Greenberg MD PCP: Sera Lechuga MD Status: [facility] Y Location: [place] [address] History of Present Illness Date of Admission: [...] (Mild, Verified 04/12/18 16:12) itching hydrocodone [From [place]] Allergy (Verified 04/12/18 09:26) Hives - Discharge Is Pt Admitted From a [facility], or a Residential: No Who Could Help: After D/C, Where [...] proceed with procedure. Zachery Greenberg MD Pager: [facility] [address] [place] [address], [address] [place] [address] Office: Surgery Risks - Colonoscopy Risks Include but are not Limited To: Risks include but are not limited to: Bleeding, perforation requiring further surgery, inability to complete colonoscopy requiring barium enema. 04/13/1842 <Electronically signed by Zachery Greenberg MD> Date Zachery Greenberg MD Cosigner Signature: Date (if applicable) CC: Zachery Greenberg MD; Sera Lechuga MD Signed CBC W/DIFF, AUTOMATED Collected: 04/05/2018 Status: F Source: SY[place] 11:16 AM [facility] REPOSITORY TYPE CODE TESTS RESULT OUT OF [...] Lymph 1.78 Performed By: #### L100.0100 #### [facility] [address] [place], [address] VITAMIN D,25 HYDROXY Collected: 04/05/2018 Status: F Source: MCGREW 11:16 AM [facility] REPOSITORY TYPE CODE TESTS RESULT OUT OF RANGE REFERENCE UNITS LAB L506.1000 29.95-100.01 ng/mL Normal Vitamin D 34.5 25-OH Result Comment: Vitamin D 25(OH) Status Range Deficiency <20 ng/mL (50nmol/L) Insuffciency 20 - 30 ng/mL (50 - 75 nmol/L) Sufficiency 30 - 100 ng/mL (75 - 250 nmol/L) Toxicity >100 ng/mL (>250 nmol/L) Performed By: #### L506.1000 #### [facility] [address] [place], [address] COMPREHENSIVE METABOLIC Collected: 04/05/2018 Status: F Source: [facility] 11:16 AM [facility] REPOSITORY TYPE CODE TESTS RESULT OUT OF [...] 10 Performed By: #### L500.4050, L500.4100 #### [facility] [address] [facility] [place], [place], [address] LIPID PROFILE Collected: 04/05/2018 Status: F Source: SYED 11:16 AM [facility] REPOSITORY TYPE CODE TESTS RESULT OUT OF [...] 14 Performed By: #### L500.4050, L500.4100 #### [facility] [address] [place], [place], [address] PSA TOTAL Collected: 11/11/2017 Status: F Source: [place] 8:21 AM [facility] REPOSITORY TYPE CODE TESTS RESULT OUT OF RANGE REFERENCE UNITS LAB [id number](LO ng/mL INC) Normal PSA Total 5.34 Result Comment: AGE-SPECIFIC REFERENCE RANGES FOR SERUM PSA REFERENCE RANGE NG/ML AGE ASIANS BLACKS WHITE 40-49 0- 2 0-2 0-2.5 50-59 0- 3 0-4 0-3.5 60-69 0- 4 0-4.5 0-4.5 70-79 0- 5 0-5.5 0-6.5 PSA INCREASES WITH AGE, RACE, AND EJACULATION WITHIN 48 HRS. [facility] VOL24,NO.2, , PG.339 Performed By: #### [id number] #### MELIZA [employer] [address] [place] [address] ALLERGIES ALLERGIES DATE TYPE / CODE NAME / CODE REACTION SEVERITY SOURCE 04/12/2018 Drug bisacodyl/I28494300 Itching ME [place] Allergy/416 2(RXNORM) [facility] 869976([facility] ED CT) Repository 04/12/2018 Drug hydrocodone/H197125 Hives Unknown [place] Allergy/416 554(RXNORM) [facility] 459004([facility] ED CT) Repository 04/12/2018 Drug polyethylene glycol Itching ME [facility] Allergy/416 3350/E305562886(RXN Community 182155([facility] ED CT) Repository Drug/720932 [place] Confucianist 003([facility]) System Repository ENCOUNTERS ENCOUNTERS ADMIT/DISCHARGE ACCOUNT NUMBER ADMITTING ENCOUNTER LOCATION SOURCE CLASS 05/10/2018/05/10/19 [id number] Andrey Hudson Ambulatory Confucianist Confucianist 19 [facility] ding:[facility] Repository 05/10/2018 [id number] Ambulatory [address] [place] [address] Repository 04/13/2018 [id number] Ambulatory BMSBuilding: [facility] BMS.CF.[facility] Repository 04/13/2018/04/13/20 [id number] Ambulatory [facility] [place] 18 [facility] ding:ENRoom: Repository AC16 04/05/2018 [id number] Ambulatory [place] Syed [facility] ding:BFHLAB Repository 04/05/2018/04/05/20 [id number] Ambulatory BMSBuilding: [place] 18 BMS.[facility] Repository 12/07/2017 [id number] [facility] Repository ing:[place] 12/07/2017/12/08/19 [id number] [facility] [address] [facility] Rep[facility] ing:Omer ndRoom: Room 3 11/11/2017/11/12/19 [id number] Andrey Hudson Ambulatory [address] ding:[facility] Repository 11/11/2017 [id number] Ambulatory [address] [place] [address] Repository 06/08/2017/06/08/19 [id number] Andrey Hudson Ambulatory [address] Repository ing:JAYnayelikatelynn ndRoom: Room 1 PAYERS PAYERS ENCOUNTER GUARANTOR PAYER SUBSCRIBER SOURCE 05/10/2018 TREVOR L Primary TREVOR L Confucianist AMSTUTZDOB: Insurance:MedicarePol AMSTUTZDOB: [facility] [id number] BOX icy Number: Effective [id number] System [id number] SONORA Date:2018-05-10 - [address] Repository [facility] [id number] [place] Name:CD:[id number] BOX [facility] [address]Kak: [id number], [place] [id number]: ([phone]) [phone]: (hp) [phone] (HP) () 05/10/2018 Secondary TREVOR [place] Insurance:COMMERCIAL AMSTUTZDOB: [facility] INSURANCEPoly [id number] System Number: Effective [address] Repository Date:2018-05-10 [place] [id number] [address] [place], Name:CD:[id number] [facility] [place]240[place]IZ[place], [place] [address]Wjj: [address]RW: [phone] (HP) () 05/10/2018 [facility] AMSTUTZDOB: Insurance:MedicarePol AMSTUTZDOB: [facility] [id number] BOX icy Number: [id number] Repository [address] [place], [id number] [address] [place] [id number]: Date:Plan Name:Kathy DIAZ [place] A [id number]: (TA) (HP) 05/10/2018 [facility] Insurance:MedicarePol AMSTUTZDOB: Hospitals icy Number: [id number] Repository [id number] [address] Date:Plan Name:Kathy DIAZ [place] B [id number]: () 05/10/2018 [facility] Insurance:CommercialP AMSTUTZDOB: [facility] olicy Number: [id number] Repository [id number] [address] Date:Plan Name:[facility] [place] [id number]: () 04/13/2018 [facility] Primary TREVOR L [facility] [id number] Insurance:MEDICARE AMSTUTZDOB: [facility] [address] PART A BPolic [id number] Hospital [address] [place], Number: Repository [place] [address]Eab: [id number] Date:2018-04-05 (HP) 04/13/2018 Secondary TREVOR L [place] Insurance:TRANSAMERIC AMSTUTZDOB: [facility] APolic Number: [id number] Hospital [id number] Repository Date:1080-69-19ZXQTCU PROCESSINGPO [address], [place] [address]SZ: 04/13/2018 Tertiary NOT GIVENUNK [facility] Insurance:SELF PAY [facility] Number: Effective Repository Date:2018-04-13 04/13/2018 TREVOR L Primary TREVOR L [facility] [id number] Insurance:MEDICARE AMSTUTZDOB: Community [address] [address] PART A [facility] [id number], Number: Repository [place] [address]Mkr: [id number] Date:2018-04-05 () 04/13/2018 Secondary TREVOR L [place] Insurance:TRANSAMERIC AMSTUTZDOB: Community APolicy Number: [id number] Hospital [id number] Repository Date:3239-99-61[facility] [address] [place] [address]BL: 04/13/2018 Tertiary NOT GIVENUNK [place] Insurance:SELF PAY [facility] Number: Effective Repository Date:2018-04-05 04/05/2018 TREVOR L Primary TREVOR L [facility] [id number] Insurance:MEDICARE AMSTUTZDOB: Community [address] PART A [facility] [id number] Number: Repository [address]Gfr: 330 [id number] [phone] () e Date:2018-04-05 04/05/2018 Secondary NOT GIVENUNK [facility] Insurance:SELF PAY [facility] Number: Effective Repository Date:2018-04-05 04/05/2018 TREVOR L Primary TREVOR L [facility] [id number] Insurance:MEDICARE AMSTUTZDOB: Community [address] PART A [facility] [id number] Number: Repository [id number]: 330 [id number] () e Date:2018-04-05 04/05/2018 Secondary NOT GIVENUNK [facility] Insurance:SELF PAY [facility] Number: Effective Repository Date:2018-04-05 12/07/2017 TREVOR L Primary TREVOR L Confucianist AMSTUTZDOB: Insurance:[facility] AMSTUTZDOB: [facility] [id number] BOX MEDICARE [id number] System [id number] [place] PRIMARYPolicy Number: [id number] Repository [address] [place], Effective [place] [id number]: Date:2017-12-07 - [address] [place], 1764-67-60Retx [place] [id number]: (HP) Name:CD:[id number] O [address]ZJCDCKMPW, ()Tel: (000) [place] [address]FP: 000-0000 (WP) 12/07/2017 Secondary TREVOR L Confucianist Insurance:1500 AMSTUTZDOB: [facility] [id number] System LIFE INSURANCE [address] Repository COMPANYPolicy Number: [place] Effective [address] [place], Date:2017-12-07 - [place] [id number]: [id number] Name:CD:[id number] ()Tel: (000) [address] [place] [address], 000-0000 (WP) [place] [address]VD: 12/07/2017 TREVOR L Primary TREVOR L Confucianist AMSTUTZDOB: Insurance:1500 AMSTUTZDOB: [facility] [id number] BOX MEDICARE [id number] System [id number] [place] PRIMARYPolicy Number: [id number] Repository [address] [place], Effective [place] [id number]: Date:2017-06-08 - [address] [place], 7204-31-05Eabd [place] [id number]: (HP) Name:CD:[id number] O [address]SXDYAEGSJ, ()Tel: (000) [place] [address]PJ: 000-0000 (WP) 12/07/2017 Secondary TREVOR L Confucianist Insurance:1500 AMSTUTZDOB: [facility] [id number] System LIFE INSURANCE [address] Repository COMPANYPolicy Number: [place] Effective [address] [place], Date:2017-06-08 - [place] [id number]: [id number] Name:CD:[id number] (HP)Tel: (000) [address], 000-0000 (WP) [place] [address]SF: 11/11/2017 [facility] AMSTUTZDOB: Insurance:MedicarePol AMSTUTZDOB: [facility] [id number] BOX icy Number: Effective [id number] System [id number] [place] Date:2017-11-11 - [address] Repository ROADCHIQUISUNT [place], 0975-79-16Umfi [facility] [place] [id number]: Name:CD:[id number] [address] [place], 773278DCZCDFUMIW, [place] [address]Rar: (HP) [id number]: [phone] (HP) (WP) 11/11/2017 [facility] Insurance:COMMERCIAL AMSTUTZDOB: [facility] INSURANCETrinity Healthy [id number] System Number: Effective [address] Repository Date:2017-11-11 - SONORA 7988-11-55Fsli [address] [place], Name:CD:[id number] BOX [place] [id number]: [address], [place] [address]LR: (088) (HP) [phone] (WP) 11/11/2017 [facility] AMSTUTZDOB: Insurance:MedicarePol [facility]ITAL[facility]: [facility] [id number] BOX icy Number: [id number] Repository [address] [place], [id number] [address] [place] [id number]: Date:Plan Name:Kathy DIAZ [place] A [id number]: (HP) (HP) 11/11/2017 Secondary [facility] Insurance:MedicarePol AMSTUTZDOB: Hospitals icy Number: [id number] Repository [id number] [address] Date:Plan Name:Kathy DIAZ [place] B [id number]: (HP) 11/11/2017 Tertiary [facility] Insurance:CommercialP AMSTUTZDOB: Hospitals olicy Number: [id number] Repository [id number] [address] Date:Plan [place], [place] Name:HealthPO [address]OX [id number]: [place], [place] [id number]: ([phone]) (HP) [phone] 06/08/2017 [facility] AMSTUTZDOB: Insurance:1500 AMSTUTZDOB: [facility] [id number] BOX MEDICARE [id number] System [id number] [place] PRIMARYPolicy Number: [id number] Repository [address] [place], Effective [place] [id number]: Date:2017-04-22 - [address] [place], 5994-56-97Zkei [place] [id number]: (HP) Name:CD:[id number] [address]CCDEGRLWU, (HP)Tel: (372) [place] [address]HF: [phone] (WP) 06/08/2017 [facility] Insurance:1500 AMSTUTZDOB: [facility] [id number] System LIFE INSURANCE [address] Repository COMPANYPolicy Number: [place] Effective [address] [place], Date:2017-04-22 - [place] [id number]: [id number] Name:CD:[id number] (HP)Tel: (324) [address], [phone] (WP) [place] [address]KR:
== END 2018-04-13 11:06 | disposition home or self-care (01) ==
LOC: EN 08:13 → AC 08:16
PROVIDERS: Family Provider Family Medicine; PCP Family Medicine; Referring Provider Surgery; Visit Provider Surgery
PROC: 0DJD8ZZ Inspection of Lower Intestinal Tract, Via Natural or Artificial Opening Endoscopic (ICD-10-PCS; CPT 45378; principal; 2018-04-13 09:25)
DX: Z12.11 Encounter for screening for malignant neoplasm of colon (principal); Z87.891 Personal history of nicotine dependence
CPT/HCPCS: G0121; J7120

== ENCOUNTER → 2019-04-04 09:47 | Outpatient (CLI) | payer MEDICARE, OTHER, SELFPAY ==
[2019-04-04 12:24] LABS: ALB/GLOB Ratio 1.3 RATIO (0.9-2.4); AST(SGOT) 19 U/L (15-37); Alanine Aminotransfer ALT/SGPT 26 U/L (16-61); Albumin, Serum 3.9 g/dL (3.2-5.0); Alkaline Phosphatase 47 U/L (45-117); Anion Gap 6 (5-15); BUN 20 mg/dL (7-18); BUN/Creat Ratio 17.9 RATIO (10-20); Chloride 105 mmol/L (98-107); Cholesterol 185 mg/dL (200); Creatinine, Serum 1.12 mg/dL (0.70-1.30); EST Glomerular Filtration Rate 69 mL/min (>60); Est Glom Filt Rate - Afr Amer 83 mL/min (>60); Glucose 90 mg/dL (74-106); High Density Lipoprotein 61 mg/dL; Potassium 3.9 mmol/L (3.5-5.1); Protein, Total 6.9 g/dL (6.4-8.2); Sodium Level 141 mmol/L (136-145); Triglycerides 64 mg/dL; Very Low Density Lipoprotein 13 mg/dL (5-40)
[2019-04-04 12:34] LABS: Absolute Lymphocyte Count 1.27 X10^3/uL (0.83-4.51); Absolute Neutrophil Count 2.7 X10^3/uL (2.0-7.7); Basophil# 0.03 X10^3/uL; Basophil% 0.7 % (0-1); Eosinophil# 0.16 X10^3/uL; Eosinophils% 3.5 % (0-5); Hematocrit 44.8 % (40-54); Hemoglobin 14.2 g/dL (13.0-16.5); Lymphocyte # 1.27 X10^3/ul (4.0); Lymphocyte % 27.6 % (19-41); Mean Corp Hgb Conc 31.7 g/dL (32-36); Mean Corpuscular Hgb 30.1 pg (27.0-32.0); Mean Corpuscular Volume 94.9 fL (80-94); Mean Platelet Vol. 10.3 fl (6.2-12.0); Monocyte% 8.7 % (0-10); NRBC Flagged by Analyzer 0 % (0-5); Neutrophil # 2.73 X10^3/uL (2.7-7.7); Neutrophil % 59.3 % (47-70); Platelet Count 207 K/mm3 (150-450); RBC Distribution Width CV 11.9 % (11.6-14.6); RBC Distribution Width SD 41.8 fl (35.1-43.9); Red Blood Count 4.72 M/mm3 (4.6-6.2); White Blood Count 4.6 K/mm3 (4.4-11.0)
== END ==
LOC: LAB.FUTURE 09:51 → BFHLAB 04-05 08:13
PROVIDERS: Family Provider Family Medicine; PCP Family Medicine; Visit Provider Family Medicine
DX: Z00.01 Encounter for general adult medical examination with abnormal findings (principal); D64.9 Anemia, unspecified; M41.9 Scoliosis, unspecified; E78.5 Hyperlipidemia, unspecified
CPT/HCPCS: 36415; 80053; 80061; 85025

== ENCOUNTER → 2020-03-28 08:33 | Outpatient (CLI) | payer MEDICARE, OTHER, SELFPAY ==
[2020-03-28 12:33] LABS: Absolute Lymphocyte Count 1.36 X10^3/uL (0.83-4.51); Absolute Neutrophil Count 2.6 X10^3/uL (2.0-7.7); Basophil# 0.05 X10^3/uL; Basophil% 1.1 % (0-1); Eosinophils% 4.3 % (0-5); Hematocrit 44.4 % (40-54); Hemoglobin 14.1 g/dL (13.0-16.5); Lymphocyte # 1.36 X10^3/ul (4.0); Mean Corp Hgb Conc 31.8 g/dL (32-36); Mean Corpuscular Hgb 29.8 pg (27.0-32.0); Mean Corpuscular Volume 93.9 fL (80-94); Mean Platelet Vol. 10.8 fl (6.2-12.0); Monocyte# 0.47 X10^3/uL; NRBC Flagged by Analyzer 0 % (0-5); Neutrophil % 55.4 % (47-70); Platelet Count 233 K/mm3 (150-450); RBC Distribution Width CV 11.9 % (11.6-14.6); RBC Distribution Width SD 41.5 fl (35.1-43.9); Red Blood Count 4.73 M/mm3 (4.6-6.2); White Blood Count 4.7 K/mm3 (4.4-11.0)
[2020-03-28 12:46] LABS: ALB/GLOB Ratio 1.3 RATIO (0.9-2.4); AST(SGOT) 15 U/L (15-37); Alanine Aminotransfer ALT/SGPT 27 U/L (16-61); Albumin, Serum 3.8 g/dL (3.2-5.0); Alkaline Phosphatase 53 U/L (45-117); Anion Gap 4 (5-15); BUN 17 mg/dL (7-18); BUN/Creat Ratio 16.2 RATIO (10-20); Chloride 107 mmol/L (98-107); Cholesterol 177 mg/dL (200); Creatinine, Serum 1.05 mg/dL (0.70-1.30); EST Glomerular Filtration Rate 74 mL/min (>60); Est Glom Filt Rate - Afr Amer 89 mL/min (>60); Globulin 2.9 g/dL (2.2-4.2); Glucose 98 mg/dL (74-106); High Density Lipoprotein 58 mg/dL; Protein, Total 6.7 g/dL (6.4-8.2); Sodium Level 140 mmol/L (136-145); Triglycerides 74 mg/dL; Very Low Density Lipoprotein 15 mg/dL (5-40)
== END ==
PROVIDERS: PCP Family Medicine; Visit Provider Family Medicine
DX: Z00.01 Encounter for general adult medical examination with abnormal findings (principal)
CPT/HCPCS: 36415; 80053; 80061; 85025

== ENCOUNTER → 2021-05-01 06:21 | Outpatient (CLI) | payer MEDICARE, OTHER, SELFPAY ==
--- NOTE | 2021-05-01 06:27 | ECHOD_ITS ---
Reason For Study: AFIB Procedure This was a 2D Doppler, Color Flow transthoracic echocardiogram. Technically difficult parasternal images. Exam performed in department. Left Ventricle Normal LV size. Left ventricular systolic function is normal. The estimated ejection fraction is 53 %. No regional wall motion abnormalities noted. Right Ventricle Normal RV size. Normal systolic function. Atria Normal left atrium. Normal right atrium. Mitral Valve Normal mitral valve. Tricuspid Valve Normal tricuspid valve. Mild tricuspid valve insufficiency. Aortic Valve Trisinus/trileaflet aortic valve. Pulmonic Valve Normal pulmonic valve. Great Vessels Normal aortic root. The pulmonary artery is normal size. Normal inferior vena cava. Pericardium/Pleural No pericardial effusion. MMode/2D Measurements & Calculations LVIDd: 4.8 cm IVSd: 0.91 cm Ao root diam: 3.7 cm LVIDs: 3.2 cm LVPWd: 0.85 cm RVDd: 4.3 cm FS: 34.4 % LAV(MOD-bp): 66.2 ml LA A4 area: 22.6 cm2 LA dimension(2D): 3.2 cm LAV(MOD-bp) Indexed: 35.5 ml/m2 LAV(MOD-sp2): 63.9 ml LAV(MOD-sp4): 67.3 ml RA A4 area: 14.5 cm2 Doppler Measurements & Calculations Ao V2 max: 116.8 cm/sec LV V1 max: 109.4 cm/sec TR max rafael: 214.9 cm/sec Ao max P.6 mmHg LV V1 max P.9 mmHg TR max P.5 mmHg ECHO/Echo Complete Interpretation Summary Normal LV size. Left ventricular systolic function is normal. The estimated ejection fraction is 53 %. Normal left atrium. Ordering Physician: Garrison Wellington Referring Physician: FAREED MATT Performed By: Ro Vilchis, RDCS, RVT
--- NOTE | 2021-05-01 09:20 | EKG12_ITS ---
Test Reason : AFIB/FLUTTER Blood Pressure : / mmHG Vent. Rate : 065 BPM Atrial Rate : 375 BPM P-R Int : 000 ms QRS Dur : 148 ms QT Int : 430 ms P-R-T Axes : 000 017 011 degrees QTc Int : 447 ms Atrial fibrillation with premature ventricular or aberrantly conducted complexes Right bundle branch block Abnormal ECG Confirmed by LISA MELENDEZ, GARRISON ([id number]), senior editor CANDIDO ADAIR ([id number]) on 05/01/2021 10:02:51 AM Referred By: Garrison Wellington Confirmed By:GARRISON WELLINGTON MD
--- NOTE | 2021-05-01 18:30 | STRESSREP ---
Stress Test Report Exercise myocardial perfusion stress test. 75-year-old male with a history of atrial fibrillation. Stress protocol: Resting EKG demonstrates sinus bradycardia with a rate of 57 bpm normal intervals are noted resting blood pressure is 128/78 mmHg occasional premature ventricular complexes noted. The patient exercised according to regular Yoni protocol for total duration of 10 minutes and 30 seconds. Patient completed 1 minute and 30 seconds into stage IV of the Yoni protocol. The maximum heart rate attained was 131 bpm which was 89% of max impact at heart rate the maximum workload was 13.4 metabolic equivalents. At rest there were no ST or T wave changes noted suggest ischemia and at peak exercise upsloping ST changes only were noted with did not meet the criteria for ischemia. Frequent premature ventricular complexes were noted especially during recovery. The patient was also noted during recovery to have gone into atrial fibrillation with a controlled ventricular response rate. The above appeared to be asymptomatic. The peak blood pressure was 178/64 mmHg. Rate-pressure protocol 16,500 the test was terminated due to the target heart rate being achieved. Myocardial perfusion protocol. 12.0 mCi of technetium 99m sestamibi was injected at rest. The patient exercised according to regular Yoni protocol for total duration of 10 minutes and 30 seconds. At peak exercise 36.0 mCi of technetium 99m sestamibi was injected stress images were obtained stress and rest images were reconstructed and compared in the short axis vertical long horizontal long axis. Gated images were also obtained per Perfusion SPECT analysis: Review of the stress images demonstrate normal uptake of tracer noted in all areas of the myocardium. The resting images similarly demonstrate normal uptake of tracer noted in all areas of the myocardium. No areas of reversibility are noted to suggest ischemia and no previous infarct is noted. Gated SPECT analysis: The gated ejection fraction is 55%. Conclusion: Normal exercise myocardial perfusion stress test at a high workload. Preserved ejection fraction. Atrial fibrillation noted during recovery.
== END ==
PROVIDERS: PCP Family Medicine; Referring Provider Internal Medicine Cardiovascular Disease; Visit Provider Internal Medicine Cardiovascular Disease
DX: I48.91 Unspecified atrial fibrillation (principal); I48.92 Unspecified atrial flutter; R94.31 Abnormal electrocardiogram [ECG] [EKG]; I45.10 Unspecified right bundle-branch block; I36.1 Nonrheumatic tricuspid (valve) insufficiency
CPT/HCPCS: 78452; 93005; 93017; 93306; A9500; A4216

== ENCOUNTER → 2021-10-24 | Outpatient (CLI) | payer MEDICARE, OTHER, SELFPAY ==
[2021-10-24 16:05] LABS: Thyroid Stim Hormone (TSH) 0.81 uIU/mL (0.358-3.74)
== END | disposition home or self-care (01) ==
LOC: LAB 14:36
PROVIDERS: PCP Family Medicine; Visit Provider Nurse Practitioner Gerontology
DX: I48.91 Unspecified atrial fibrillation (principal)
CPT/HCPCS: 36415; 84443

== ENCOUNTER → 2022-04-14 | Outpatient (CLI) | payer MEDICARE, OTHER, SELFPAY ==
[2022-04-14 12:45] LABS: Absolute Lymphocyte Count 1.71 X10^3/uL (0.83-4.51); Absolute Neutrophil Count 3.5 X10^3/uL (2.0-7.7); Basophil# 0.05 X10^3/uL; Basophil% 0.8 % (0-1); Eosinophil# 0.25 X10^3/uL; Eosinophils% 4.1 % (0-5); Hematocrit 45.9 % (40-54); Hemoglobin 14.6 g/dL (13.0-16.5); Lymphocyte # 1.71 X10^3/ul (0.83-4.51); Lymphocyte % 28.4 % (19-41); Mean Corp Hgb Conc 31.8 g/dL (32-36); Mean Corpuscular Hgb 29.7 pg (27.0-32.0); Mean Corpuscular Volume 93.3 fL (80-94); Mean Platelet Vol. 10.6 fl (6.2-12.0); Monocyte# 0.53 X10^3/uL; Monocyte% 8.8 % (0-10); NRBC Flagged by Analyzer 0.3 % (0-5); Neutrophil # 3.46 X10^3/uL (2.7-7.7); Neutrophil % 57.4 % (47-70); Platelet Count 246 K/mm3 (150-450); RBC Distribution Width CV 12.1 % (11.6-14.6); RBC Distribution Width SD 41.5 fl (35.1-43.9); Red Blood Count 4.92 M/mm3 (4.6-6.2)
[2022-04-14 13:03] LABS: ALB/GLOB Ratio 1.3 RATIO (0.9-2.4); AST(SGOT) 23 U/L (15-37); Alanine Aminotransfer ALT/SGPT 30 U/L (16-61); Albumin, Serum 3.9 g/dL (3.2-5.0); Alkaline Phosphatase 55 U/L (45-117); Anion Gap 5 (5-15); BUN 18 mg/dL (7-18); BUN/Creat Ratio 16.1 RATIO (10-20); Calcium,Total 9.3 mg/dL (8.5-10.1); Chloride 103 mmol/L (98-107); Cholesterol 191 mg/dL (200); Creatinine, Serum 1.12 mg/dL (0.70-1.30); EST Glomerular Filtration Rate 68 mL/min (>60); Est Glom Filt Rate - Afr Amer 82 mL/min (>60); Globulin 2.9 g/dL (2.2-4.2); Glucose 106 mg/dL (74-106); High Density Lipoprotein 63 mg/dL; Protein, Total 6.8 g/dL (6.4-8.2); Sodium Level 138 mmol/L (136-145); Triglycerides 75 mg/dL; Very Low Density Lipoprotein 15 mg/dL (5-40); Vitamin D,25 Hydroxy 36.9 ng/mL
== END | disposition home or self-care (01) ==
LOC: BFHLAB 10:39
PROVIDERS: PCP Family Medicine; Visit Provider Family Medicine
DX: Z00.01 Encounter for general adult medical examination with abnormal findings (principal); I48.91 Unspecified atrial fibrillation; E55.9 Vitamin D deficiency, unspecified
CPT/HCPCS: 36415; 80053; 80061; 82306; 85025

== ENCOUNTER → 2022-10-21 | Outpatient (CLI) | payer MEDICARE, OTHER, SELFPAY | END | disposition home or self-care (01) | LOC: PSN 08:45 | PROVIDERS: PCP Family Medicine; Referring Provider Internal Medicine Cardiovascular Disease; Visit Provider Internal Medicine Cardiovascular Disease | DX: I48.91 Unspecified atrial fibrillation (principal) | CPT/HCPCS: 93225; 93226 ==

== ENCOUNTER → 2023-04-17 | Outpatient (CLI) | payer MEDICARE, OTHER, SELFPAY ==
[2023-04-17 12:28] LABS: Absolute Lymphocyte Count 1.44 X10^3/uL (0.83-4.51); Absolute Neutrophil Count 3.4 X10^3/uL (2.0-7.7); Basophil# 0.04 X10^3/uL; Basophil% 0.7 % (0-1); Eosinophil# 0.25 X10^3/uL; Eosinophils% 4.3 % (0-5); Hematocrit 46.7 % (40-54); Hemoglobin 15.4 g/dL (13.0-16.5); Lymphocyte # 1.44 X10^3/ul (0.83-4.51); Mean Corpuscular Hgb 30.4 pg (27.0-32.0); Mean Corpuscular Volume 92.1 fL (80-94); Mean Platelet Vol. 10.7 fl (6.2-12.0); Monocyte# 0.61 X10^3/uL; Monocyte% 10.6 % (0-10); NRBC Flagged by Analyzer 0 % (0-5); Neutrophil % 59.1 % (47-70); Platelet Count 235 K/mm3 (150-450); RBC Distribution Width CV 12.2 % (11.6-14.6); RBC Distribution Width SD 41.2 fl (35.1-43.9); Red Blood Count 5.07 M/mm3 (4.6-6.2); White Blood Count 5.8 K/mm3 (4.4-11.0)
[2023-04-17 12:39] LABS: ALB/GLOB Ratio 1.3 RATIO (0.9-2.4); AST(SGOT) 23 U/L (15-37); Alanine Aminotransfer ALT/SGPT 25 U/L (16-61); Albumin, Serum 3.8 g/dL (3.2-5.0); Alkaline Phosphatase 53 U/L (45-117); Anion Gap 5 (5-15); BUN 24 mg/dL (7-18); BUN/Creat Ratio 22.4 RATIO (10-20); Calcium,Total 8.9 mg/dL (8.5-10.1); Chloride 106 mmol/L (98-107); Cholesterol 179 mg/dL (200); Creatinine, Serum 1.07 mg/dL (0.70-1.30); EST Glomerular Filtration Rate 72 mL/min (>60); Est Glom Filt Rate - Afr Amer 87 mL/min (>60); Glucose 101 mg/dL (74-106); High Density Lipoprotein 69 mg/dL; Potassium 4.2 mmol/L (3.5-5.1); Protein, Total 6.8 g/dL (6.4-8.2); Sodium Level 140 mmol/L (136-145); Triglycerides 64 mg/dL; Very Low Density Lipoprotein 13 mg/dL (5-40)
== END | disposition home or self-care (01) ==
LOC: MTLAB 10:28
PROVIDERS: PCP Family Medicine; Referring Provider Family Medicine; Visit Provider Family Medicine
DX: Z00.01 Encounter for general adult medical examination with abnormal findings (principal); I48.91 Unspecified atrial fibrillation
CPT/HCPCS: 36415; 80053; 80061; 85025

== ENCOUNTER 2023-07-08 10:28 | Inpatient (IN) | payer MEDICARE, OTHER, SELFPAY ==
[2023-07-08] VITALS (31 sets, daily range): BP systolic 115–171; BP diastolic 44–98; PULSE 57–72; RESP 14–23; TEMP 36.4–37; O2SAT 90–98; BMI 23.3; BMI 23.2
--- NOTE | 2023-07-08 10:30 | EKG12_ITS ---
Test Reason : NEURO Blood Pressure : / mmHG Vent. Rate : 056 BPM Atrial Rate : 056 BPM P-R Int : 248 ms QRS Dur : 150 ms QT Int : 446 ms P-R-T Axes : 046 007 031 degrees QTc Int : 430 ms Sinus bradycardia with 1st degree A-V block with occasional Premature ventricular complexes Possible Left atrial enlargement Right bundle branch block Abnormal ECG Confirmed by Giuseppe Smith ([id number]), desk editor RAJ HUMPHRIES ([id number]) on 07/09/2023 2:44:09 PM Referred By: Confirmed By:Giuseppe Smith
--- NOTE | 2023-07-08 10:31 | CT_ITS ---
INDICATION: CVA EXAMINATION: CT BRAIN - CT Head Stroke Protocol W/O Contrast Injection TECHNIQUE: Multiple axial images were obtained of the head without intravenous contrast. A radiation dose optimization technique was used for this scan. IV Contrast dosage and agent: None. RADIATION DOSAGE (If Supplied By Facility): CTDIvol = ( ) mGy, DLP = ( ) mGycm COMPARISON: No relevant prior comparison study available FINDINGS: BRAIN PARENCHYMA: No intra- or extra-axial hemorrhage. There are foci of low attenuation within the posterior parietal and occipital lobes. No intracranial mass or mass effect. There is preservation of the roman/white matter interface. Posterior fossa structures are unremarkable. CSF SPACES: Appropriate for age. No hydrocephalus. Basal cisterns are patent. CALVARIUM, SKULL BASE, PARANASAL SINUSES AND MASTOID AIR CELLS: There is partial increased sclerosis of the right mastoid air cells, may be secondary to a history of mastoiditis. There is partial opacification of the left frontal sinus consistent with a history of sinusitis. No discrete lytic or blastic abnormalities. ORBITS: Both globes, extraocular muscles, optic nerves and retrobulbar fat appear unremarkable. 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 N.B. : The above Results were Read Back by Cee Arriola MD to Marco Andersen MD, and understanding confirmed on 07/08/2023 10:47:10 (ET). Electronically Signed: Cee Arriola MD at 10:48 EST ,
--- NOTE | 2023-07-08 10:31 | NURSING ---
1026 STROKE ALERT CALLED
--- NOTE | 2023-07-08 10:37 | CT_ITS ---
We are attempting to reach an attending provider to discuss findings. An addendum with communication details will be sent when the communication is complete. HISTORY: Neuro deficit, acute, stroke suspected. TECHNIQUE: [place]/head and carotid CT angiogram protocol was performed after the intravenous administration of 100 mL Isovue 370. NASCET criteria using the distal ICAs for comparison were used for evaluation of stenoses. 3D reconstructions were reviewed. A radiation dose optimization technique was used for this scan. 2186 images. COMPARISON: CT head same day. FINDINGS: AORTIC ARCH AND BRANCHES: No significant stenosis. RIGHT CCA: No occlusion, significant stenosis or dissection. Minimal calcified plaque at the bifurcation. RIGHT ICA: No occlusion, significant stenosis or dissection. LEFT CCA: No occlusion, significant stenosis or dissection. Minimal calcified plaque at the bifurcation. LEFT ICA: No occlusion, significant stenosis or dissection. RIGHT VERTEBRAL ARTERY: No occlusion, significant stenosis or dissection. Mildly hypoplastic. LEFT VERTEBRAL ARTERY: No occlusion, significant stenosis or dissection. Dominant and mildly tortuous. SOFT TISSUES: Mild left frontal ethmoid mucosal thickening and fluid. ICAs: No significant stenosis at the intracranial/visualized segments. ACAs: No significant stenosis at the visualized segments. MCAs: No significant stenosis at the visualized segments. project leader: No significant stenosis at the visualized segments. BASILAR ARTERY: No significant stenosis. VERTEBRAL ARTERIES: No significant stenosis at the intradural/visualized segments. No evidence of intracranial aneurysm or vascular malformation. CT/STROKE CTA Head AND Neck W/Con IMPRESSION: No evidence for significant stenosis or occlusion in the carotid or vertebral arteries of the neck. No evidence for large vessel occlusion or other focal vascular abnormality in the [place] region. Electronically Signed: Raquel Wynn MD at 11:29 EST ,
--- NOTE | 2023-07-08 10:38 | ED.VIS.STROK ---
HPI History of Present Illness Chief Complaint: Stroke Alert Detail of Chief Complaint: Homonymous quadrantanopsia left upper Informant: patient and spouse/S.O. Onset/Context/Timing Onset: Today and Hours (0800) Context: Sudden Onset Timing: Continuous Quality and Location: Positive for - (Left upper homonymous quadrantanopsia) Onset: 0800 Current Severity: Moderate Maximum Severity: Moderate Worsened by: Nothing Relieved by: Nothing Associated Symptoms Associated Symptoms: Negative for Headache or Nausea Narrative Narrative: Patient is a 77-year-old male with history of atrial fibrillation. Patient presents from Dr. Dodson's office with a left upper homonymous quadrantanopsia. This started at 0800. Patient is on aspirin. Is on no anticoagulant. He has no history of recent head trauma. Has no history of GI bleed. He is not bruising easily. Per review of records he also has history of benign prostatic hypertrophy. Patient denies cardiac respiratory symptoms. Patient denies GI symptoms. [facility] office was contacted to have patient transported by ambulance. He elected not to. He was seen immediately when he arrived in triage. Prior similar symptoms: No Recent Illness/Hospitalization: No PFSH PFS Medical History BPH (benign prostatic hyperplasia) New onset atrial fibrillation (04/18/21) Osteoarthritis Right bundle branch block (RBBB) Home Medications glucosamine-chondroitin 750 mg-600 mg tablet 1 ea PO DAILY 04/12/18 [History Last Taken 07/07/23] ibuprofen 600 mg tablet 600 mg PO Q6H PRN Pain 04/12/18 [History Last Taken Unknown] krill ulz-lqisq-8-dha-epa 300 mg-90 mg (27 mg-45 mg) capsule 1 ea PO DAILY 04/12/18 [History Last Taken 07/07/23] multivitamin with folic acid 400 mcg tablet (Thera) 1 tab PO DAILY 04/12/18 [History Last Taken 07/07/23] tamsulosin 0.4 mg capsule 0.4 mg PO DAILY 04/12/18 [History Last Taken 07/07/23] turmeric 450 mg-turmeric root extract 50 mg capsule 1 ea PO DAILY 04/12/18 [History Last Taken 07/07/23] aspirin 325 mg tablet 325 mg PO DAILY 04/24/21 [History Last Taken 07/07/23] Allergy/AdvReac Type Severity Reaction Status Date / Time bisacodyl Allergy Mild itching Verified 10/09/22 13:20 [From Dulcolax (bisacodyl)] polyethylene glycol 3350 Allergy Mild itching Verified 10/09/22 13:20 [From Miralax] hydrocodone [From [place]] Allergy Hives Verified 10/09/22 13:20 Family History Father Heart disease Brother Atrial fibrillation Surgical History H/O discectomy History of carpal tunnel release History of colonoscopy History of herniorrhaphy Social History household members: spouse Smoking Status: Former smoker ROS ROS ED Constitutional Constitutional ED: Denies chills, fever(s), subjective or sweats Eyes Eyes: Reports blurry vision bilateral and change in vision bilateral; Denies diplopia ENT ENT ED: Denies ear pain, rhinorrhea or sore throat Cardiovascular Cardiovascular: Denies chest pain, palpitations, paroxysmal nocturnal dyspnea or racing heartbeat Respiratory/Chest Respiratory/Chest: Denies cough, dyspnea, dyspnea on exertion or paroxysmal nocturnal dyspnea Gastrointestinal Gastrointestinal: Denies abdominal pain, nausea or vomiting Genitourinary Genitourinary ED: Denies dysuria or hematuria Musculoskeletal Musculoskeletal: Denies arthralgias, back pain or myalgias Neurologic Neurologic: Denies headache(s), paresthesias or weakness Psychiatric Psychiatric: Denies anxiety Hematologic/Lymphatic Hematologic/Lymphatic: Denies easy bleeding or easy bruising EXAM Physical Exam Const Vital Signs: 07/08/23 10:34 07/08/23 10:37 07/08/23 10:45 Temperature 97.6 F L Temperature Source Temporal Pulse Rate 64 Respiratory Rate Blood Pressure 171/92 H 165/91 H Blood Pressure Mean 118 Blood Pressure Source Blood Pressure Position Blood Pressure Location Pulse Ox 96 Oxygen Delivery Method Room Air Room Air 07/08/23 10:52 07/08/23 11:00 07/08/23 11:15 Temperature 97.6 F L 97.6 F L 97.5 F L Temperature Source Temporal Temporal Core Pulse Rate 59 L 57 L 60 Respiratory Rate 16 16 16 Blood Pressure 164/76 H 158/98 H 147/72 H Blood Pressure Mean 105 118 97 Blood Pressure Source Monitor Monitor Blood Pressure Position Semi-Fowlers Semi-Fowlers Blood Pressure Location Right Arm Left Arm Pulse Ox 97 97 98 Oxygen Delivery Method Room Air Room Air Room Air Positive well nourished and well developed General Appearance ED: well developed and NAD HEENT Reports moist mucous membranes atraumatic Eyes PERRL and EOMs intact bilaterally Eyes Narrative: Left upper homonymous quadrantanopsia General Eye ED: Negative for pale conjunctiva or scleral icterus Neck no lymphadenopathy, supple and no JVD Chest Wall inspection of chest normal and palpation of chest normal Resp normal respiratory effort and clear to auscultation bilaterally Cardio no murmurs Rate: regular rate Rhythm: abnormal rhythm irregularly irregular Heart Sounds: S1 normal GI normal to inspection, nondistended, normoactive bowel sounds, soft to palpation, non-tender, non-distended and no masses Back/Spine no CVA tenderness Extremity normal to inspection Neuro oriented x3 and no sensory deficits noted [place] Coma Scale: document GCS findings Spontaneous Obeys Commands Oriented 15 Sensorium / Orientation: alert Speech: speech normal Gait (Neuro): normal gait Motor Exam: strength 5/5 throughout Psych mental status grossly normal Skin no wounds General Skin Exam: Negative for jaundice Lesions: no lesions Rashes: no rashes NIHSS NIHSS Initial: 1a Level of Consciousness: 0 1b LOC Questions (Score 2 if aphasic/stupor): 0 1c LOC Commands (Only score 1st attempt): 0 2 Best Gaze (If aphasic, use reflexive mvmts.): 0 3 Visual: 1 4 Facial Palsy: 0 5 Motor Arm Right (UN = amputation/fusion): 0 5 Motor Arm Left: 0 6 Motor Leg Right: 0 6 Motor Leg Left: 0 7 Limb ataxia (Only + if out of proportion): 0 8 Sensory (Aphasia/stupor=0 or 1, coma=2): 0 9 Best Language: 0 10 Dysarthria (mute, coma=2, intubated=UN): 0 11 Extinction and Inattention (only scored if +): 0 Total Score: 1 MDM MDM MDM Narrative Medical decision making narrative: Presents from Dr. Dodson's office with a left upper homonymous quadrantanopsia. Symptoms started at 8 AM. He has no other complaints. Does have a history of atrial fibrillation he is not on anticoagulant. He is on baby aspirin. Upon arrival he was seen in triage. Stroke order set was initiated. Once CT was completed contacted pharmacy since he agreed to TNK. He was explained risk benefits. Lab Data Labs: Laboratory Results - last 24 hr 07/08/23 10:35 WBC 5.3 RBC 4.76 Hgb 14.0 Hct 43.9 MCV 92.2 MCH 29.4 MCHC 31.9 L RDW Std Deviation 42.0 RDW Coeff of [place]am[place] 12.3 Plt Count 218 MPV 10.2 Immature Gran % (Auto) 0.200 Neut % (Auto) 55.2 Lymph % (Auto) 28.3 [place] % (Auto) 11.6 H Eos % (Auto) 3.8 Baso % (Auto) 0.9 Absolute Neuts (auto) 2.9 Absolute Lymphs (auto) 1.49 Nucleated RBC % 0 PT 14.0 INR 1.1 APTT 28.7 Sodium 140 Potassium 4.0 Chloride 109 H Carbon Dioxide 28.0 Anion Gap 3 L BUN 23 H Creatinine 1.09 Estim Creat Clear Calc 58.56 Est GFR (MDRD) Af Amer 85 Est GFR (MDRD) Non-Af 70 BUN/Creatinine Ratio 21.1 H Glucose 89 Calcium 8.9 Troponin I High Sens 12 Radiography Diagnostic Testing: Clinical Impression(s) from Imaging Studies Brain CT 07/08/23 10:31 IMPRESSION: Foci of low attenuation within the posterior parietal and occipital lobes which 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 N.B. : The above Results were Read Back by Cee Arriola MD to Marco Andersen MD, and understanding confirmed on 07/08/2023 10:47:10 (ET). Electronically Signed: Cee Arriola MD at 10:48 EST , ADDENDUM: 07/08/23 1055 IMPRESSION: Foci of low attenuation within the posterior parietal and occipital lobes which 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 N.B. : The above Results were Read Back by Cee Arriola MD to Marco Andersen MD, and understanding confirmed on 07/08/2023 10:47:10 (ET). Electronically Signed: Cee Arriola MD at 10:48 EST , Rhythm Strip Rhythm Strip: Sinus Rhythm Rate: 78 Ectopy: PVC(s) and PAC(s) Management Discussion w/another healthcare provider: Hospitalist (Hospitalist was then called for admission ICU, Dr. Umana), Appeals Rn (Dr. Conley recommended TNK. He was informed of TNK was already given.), Radiologist (Received call from radiologist which revealed no evidence of bleed. She informed me that there was some concern that this may represent low-flow.) and Other (Dr. Ramos Saravia was made aware of patient.) Stroke Documentation Questions Stroke Team Activated: Yes Reviewed Inclusion/Exclusion criteria: Yes Was Patient considered for Endovascular Intervention?: Yes-CTA +,PT transferred for further eval of endovascular intervention IV Thrombolytic Administered: Yes No contraindications from thrombolytic administration: Yes Risks, Benefits, Alternatives Discussed: Yes Critical Care Time Critical Care Time: Yes Critical care time (excluding procedures): 30-74 minutes (31 minutes), Including time spent: (History, physical, documentation, discussing with Dr. Dodson prior to presentation, his office staff to arrange rapid transport), Discussing w/Patient &/or Family/Moto Mix Operator, Discussing w/Consultants, Arranging Admission or Transfer and - Discharge Plan Dx/Rx/DC Orders Clinical Impression: Left homonymous hemianopsia, Right bundle branch block (RBBB), Asymptomatic PVCs, PAC (premature atrial contraction), History of atrial fibrillation Disposition Disposition: Acute Care Hospital [facility]
[2023-07-08] MEDS: 0.9% Saline Lock 10 ML Syringe IV ×4 (10:44→23:16)
[2023-07-08] MEDS: TENECTEPLASE 2577.6 MG IV (10:45)
[2023-07-08 10:47] LABS: Absolute Lymphocyte Count 1.49 X10^3/uL (0.83-4.51); Absolute Neutrophil Count 2.9 X10^3/uL (2.0-7.7); Basophil# 0.05 X10^3/uL; Basophil% 0.9 % (0-1); Eosinophils% 3.8 % (0-5); Hematocrit 43.9 % (40-54); Lymphocyte # 1.49 X10^3/ul (0.83-4.51); Lymphocyte % 28.3 % (19-41); Mean Corp Hgb Conc 31.9 g/dL (32-36); Mean Corpuscular Hgb 29.4 pg (27.0-32.0); Mean Corpuscular Volume 92.2 fL (80-94); Mean Platelet Vol. 10.2 fl (6.2-12.0); Monocyte# 0.61 X10^3/uL; Monocyte% 11.6 % (0-10); NRBC Flagged by Analyzer 0 % (0-5); Neutrophil # 2.91 X10^3/uL (2.7-7.7); Neutrophil % 55.2 % (47-70); Platelet Count 218 K/mm3 (150-450); RBC Distribution Width CV 12.3 % (11.6-14.6); Red Blood Count 4.76 M/mm3 (4.6-6.2); White Blood Count 5.3 K/mm3 (4.4-11.0)
[2023-07-08] MEDS: 0.9% Normal Saline (1000mL) 1,000 ML 100 ML IV ×3 (10:47→21:00)
--- NOTE | 2023-07-08 10:48 | ED.RN ---
1037 [facility] called back to tell pt is in room. kurt at bedside observes pt. prior to tnk admin.
--- NOTE | 2023-07-08 11:10 | RAD_ITS ---
INDICATION: Neuro deficit, acute, stroke suspected EXAMINATION/TECHNIQUE: X-RAY - XR Chest 1 View COMPARISON: No relevant prior comparison study available FINDINGS: LINES/DEVICES: None. LUNGS: There is elevation of the left hemidiaphragm. There are a few left basilar linear opacities. No pneumothorax. MEDIASTINUM AND CARDIOVASCULAR STRUCTURES: Cardiac silhouette not enlarged. Central airways and mediastinal contour are unremarkable. BONES AND SOFT TISSUES: Unremarkable. RAD/Chest 1 View IMPRESSION: Minimal left basilar atelectasis. Electronically Signed: Cee Arriola MD at 11:32 EST ,
[2023-07-08 11:11] LABS: Anion Gap 3 (5-15); BUN 23 mg/dL (7-18); BUN/Creat Ratio 21.1 RATIO (10-20); Calcium,Total 8.9 mg/dL (8.5-10.1); Chloride 109 mmol/L (98-107); Creatinine, Serum 1.09 mg/dL (0.70-1.30); EST Glomerular Filtration Rate 70 mL/min (>60); Est Glom Filt Rate - Afr Amer 85 mL/min (>60); Estimated Creatinine Clearance 58.56 ml/min; Glucose 89 mg/dL (74-106); Sodium Level 140 mmol/L (136-145); Troponin-I HS 12 pg/mL (3.0-78.0)
--- NOTE | 2023-07-08 11:15 | PCM.HP.STD ---
HPI - General General Date of Admission: 07/08/23 Date of Service: 07/08/23 Chief Complaint: Left upper quadrantanopia status post tenecteplase HPI Narrative TREVOR ESQUIVEL, is a 77 M came to ED with left upper visual field blindness around 8 AM. LK W 8 AM. Patient does not have any other focal symptoms of weakness, paresthesia, numbness tingling, confusion, unconscious, impaired/loss of speech/language deficit or dysarthria or dysphagia. Patient never had similar symptoms of a stroke. No fever. Denies chest pain shortness of breath or palpitation. History of A-fib not on anticoagulant. CT head stat was done which did not show acute bleed. In ED, patient found to met criteria for IV thrombolytic, tenecteplase therefore it was given. Labs, vitals, imaging, EKG individually reviewed discussion assessment and plan. Patient is further admitted in ICU as per protocol. [facility] Medical History BPH (benign prostatic hyperplasia) New onset atrial fibrillation (04/18/21) Osteoarthritis Right bundle branch block (RBBB) Home Medications glucosamine-chondroitin 750 mg-600 mg tablet 1 ea PO DAILY 04/12/18 [History Last Taken 07/07/23] ibuprofen 600 mg tablet 600 mg PO Q6H PRN Pain 04/12/18 [History Last Taken Unknown] krill bks-hzyti-4-dha-epa 300 mg-90 mg (27 mg-45 mg) capsule 1 ea PO DAILY 04/12/18 [History Last Taken 07/07/23] multivitamin with folic acid 400 mcg tablet (Thera) 1 tab PO DAILY 04/12/18 [History Last Taken 07/07/23] tamsulosin 0.4 mg capsule 0.4 mg PO DAILY 04/12/18 [History Last Taken 07/07/23] turmeric 450 mg-turmeric root extract 50 mg capsule 1 ea PO DAILY 04/12/18 [History Last Taken 07/07/23] aspirin 325 mg tablet 325 mg PO DAILY 04/24/21 [History Last Taken 07/07/23] Allergy/AdvReac Type Severity Reaction Status Date / Time bisacodyl Allergy Mild itching Verified 10/09/22 13:20 [From Dulcolax (bisacodyl)] polyethylene glycol 3350 Allergy Mild itching Verified 10/09/22 13:20 [From Miralax] hydrocodone [From Cascadia] Allergy Hives Verified 10/09/22 13:20 Family History Father Heart disease Brother Atrial fibrillation Surgical History H/O discectomy History of carpal tunnel release History of colonoscopy History of herniorrhaphy Social History household members: spouse Smoking Status: Former smoker ROS ROS Narrative Constitutional: Denies fatigue and weakness. No fever. HEENT: Reports systems reviewed and no addt'l complaints, except as documented Respiratory/Chest: No acute shortness of breath or respiratory distress or wheezing. CVS: Denies chest pain pressure tightness or squeezing sensation/anginal-like symptoms Gastrointestinal: Denies coffee ground emesis, hematemesis or vomiting Genitourinary: Denies burning urination or new urinary tract symptoms. Cho catheter inserted in ED prior to tenecteplase. Musculoskeletal: Denies acute joint pain or limited range of motion. No acute injury Neurologic: Denies seizure-like symptoms. skin: No ulcer. No rash Endocrinology: Reports systems reviewed and no addt'l complaints, except as documented Hematologic/Lymphatic: Reports systems reviewed and no addt'l complaints, except as documented Rest 14 ROS are negative except as mentioned in HPI Vital Signs Vital Signs Vital Signs: 07/08/23 10:34 07/08/23 10:37 07/08/23 10:45 Temperature 97.6 F L Temperature Source Temporal Pulse Rate 64 Respiratory Rate Blood Pressure 171/92 H 165/91 H Blood Pressure Mean 118 Blood Pressure Source Blood Pressure Position Blood Pressure Location Pulse Ox 96 Oxygen Delivery Method Room Air Room Air 07/08/23 10:52 07/08/23 11:00 Temperature 97.6 F L 97.6 F L Temperature Source Temporal Temporal Pulse Rate 59 L 57 L Respiratory Rate 16 16 Blood Pressure 164/76 H 158/98 H Blood Pressure Mean 105 118 Blood Pressure Source Monitor Blood Pressure Position Semi-Fowlers Blood Pressure Location Right Arm Pulse Ox 97 97 Oxygen Delivery Method Room Air Room Air Weight Weight: 158 lb 3.965 oz Body Mass Index (BMI) 23.3 Physical Exam Narrative Seen and examined after tenecteplase. General: Alert, Oriented x3, Cooperative HEENT: Atraumatic, PERRLA, EOMI, Normocephalic, on 1-1 visual test, mild left upper quadrantanopsia found but seems improving Oral: Oral mucosa moist. No Gingival or Mucosal Lesions/ Ulcerations Neck: Supple, No JVD, Negative Carotid Bruits Chest wall/Lungs: Air entry diminished in bilateral lung bases. No crepitation/rhonchi Cardiovascular: Sinus rhythm, PVC, bradycardia, Normal S1, Normal S2, No M/G/R Abdomen: Bowel Sounds Present, Soft, Non Tender, Non-Distended : No dysuria. No renal angle tenderness. No suprapubic tenderness. Extremities: No edema, Capillary Refill Less than 3 Seconds Skin: No rashes, No breakdown Musculoskeletal: No Tenderness to Palpation of Joints or Extremities Neurological: Cranial nerves II-XII grossly intact, DTR 2+/4. No acute focal neurological deficit. NIH 1. Psych/Mental Status: Normal Affect, Appropriate. Results Lab / Micro Data 07/08/23 10:35 07/08/23 10:35 Labs: Laboratory Results - last 24 hr 07/08/23 10:35: WBC 5.3, RBC 4.76, Hgb 14.0, Hct 43.9, MCV 92.2, MCH 29.4, MCHC 31.9 L, RDW Std Deviation 42.0, RDW Coeff of Aamir 12.3, Plt Count 218, MPV 10.2, Immature Gran % (Auto) 0.200, Neut % (Auto) 55.2, Lymph % (Auto) 28.3, Bay % (Auto) 11.6 H, Eos % (Auto) 3.8, Baso % (Auto) 0.9, Absolute Neuts (auto) 2.9, Absolute Lymphs (auto) 1.49, Nucleated RBC % 0, Sodium 140, Potassium 4.0, Chloride 109 H, Carbon Dioxide 28.0, Anion Gap 3 L, BUN 23 H, Creatinine 1.09, Estim Creat Clear Calc 58.56, Est GFR (MDRD) Af Amer 85, Est GFR (MDRD) Non-Af 70, BUN/Creatinine Ratio 21.1 H, Glucose 89, Calcium 8.9, Troponin I High Sens 12 Rhythm Strip Rhythm Strip: Sinus Rhythm Rate: 78 Ectopy: PVC(s) and PAC(s) Imaging Radiology Impression Brain CT 07/08/23 10:31 IMPRESSION: Foci of low attenuation within the posterior parietal and occipital lobes which 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 N.B. : The above Results were Read Back by Cee Arriola MD to Marco Andersen MD, and understanding confirmed on 07/08/2023 10:47:10 (ET). Electronically Signed: Cee Arriola MD at 10:48 EST , ADDENDUM: 07/08/23 1055 IMPRESSION: Foci of low attenuation within the posterior parietal and occipital lobes which 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 N.B. : The above Results were Read Back by Cee Arriola MD to Marco Andersen MD, and understanding confirmed on 07/08/2023 10:47:10 (ET). Electronically Signed: Cee Arriola MD at 10:48 EST , Assessment & Plan Assessment/Plan (1) Left homonymous hemianopsia: PLAN: Plan This is 77-year-old gentleman being admitted for left homonymous quadrantanopsia after tenecteplase was given. 1. Acute ischemic stroke/left homonymous quadrantanopsia status post tenecteplase: Patient is being admitted in in ICU after thrombolytics. Patient has history of A-fib but currently sinus bradycardia. Twelve-lead EKG individually reviewed shows sinus bradycardia with PVCs, first-degree block, right bundle branch block. Heart rate 56/min, QTc 430 ms. Chest x-ray initially reviewed shows mild left lung base atelectasis. CT head and CTA head and neck reviewed. CT brain was suggestive of low-attenuation within posterior parietal and occipital lobes. CTA brain does not show hemodynamically significant large vessel stenosis or occlusion. PT, OT, speech therapy/swallow evaluation and management, nursing NIH stroke scale, BP and glucose monitoring and control as per stroke protocol. TSH, A1c fasting lipid profile tomorrow AM. MRI brain and 2D echo with bubble contrast study ordered. Teleneurology consulted. Pediatric Oncologist consulted. 2. Paroxysmal A-fib, not on anticoagulant, PVCs, sinus bradycardia, chronic right bundle branch block: EKG reviewed as mentioned above. Heart rate is controlled. 3. BPH on Flomax: Urinary catheter has been inserted prophylactically before tenecteplase was given as per protocol. 4. Chronic degenerative osteoarthritis: Controlled. PT and OT ordered. Living will/advanced directive/end of life care: Patient does have living will or advanced directive. POA is patient's and daughter. After discussion of benefits/risks procedures involved with full code, DNR CC arrest and DNR CC, the patient and his POA his opted for full code. Patient does want artificial life support including intubation, tube feed, ventilator and/chest compression, central venous catheter, vasopressor and DC shock if needed Total time spent in [id number] encounter in discussion of advanced directive 17 minutes. Laboratory Results 07/08/23 10:35: WBC 5.3, RBC 4.76, Hgb 14.0, Hct 43.9, MCV 92.2, MCH 29.4, MCHC 31.9 L, RDW Std Deviation 42.0, RDW Coeff of Aamir 12.3, Plt Count 218, MPV 10.2, Immature Gran % (Auto) 0.200, Neut % (Auto) 55.2, Lymph % (Auto) 28.3, Bay % (Auto) 11.6 H, Eos % (Auto) 3.8, Baso % (Auto) 0.9, Absolute Neuts (auto) 2.9, Absolute Lymphs (auto) 1.49, Nucleated RBC % 0, PT 14.0, INR 1.1, APTT 28.7, Sodium 140, Potassium 4.0, Chloride 109 H, Carbon Dioxide 28.0, Anion Gap 3 L, BUN 23 H, Creatinine 1.09, Estim Creat Clear Calc 58.56, Est GFR (MDRD) Af Amer 85, Est GFR (MDRD) Non-Af 70, BUN/Creatinine Ratio 21.1 H, Glucose 89, Calcium 8.9, Troponin I High Sens 12 Clinical Impression(s) from Imaging Studies Brain CT 07/08/23 10:31 IMPRESSION: Foci of low attenuation within the posterior parietal and occipital lobes which 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 Clinical Impression(s) from Imaging Studies Brain CT 07/08/23 10:31 IMPRESSION: Foci of low attenuation within the posterior parietal and occipital lobes which 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 Head/Neck CTA 07/08/23 10:37 IMPRESSION: No evidence for significant stenosis or occlusion in the carotid or vertebral arteries of the neck. No evidence for large vessel occlusion or other focal vascular abnormality in the [place] region. Chest X-Ray 07/08/23 11:10 IMPRESSION: Minimal left basilar atelectasis. Charges/Coding Visit Charges Inpatient E&M: 05357 Init Hosp L3 Procedures Hospitalists Procedures: 41053 Advncd Care Plan 30 Min
[2023-07-08 11:19] LABS: International Normalized Ratio 1.1
[2023-07-08 11:20] LABS: Partial Thromboplast Time 28.7 Seconds (24.1-36.2)
--- NOTE | 2023-07-08 11:53 | ECHOCS_ITS ---
Reason For Study: TIA/CVA Procedure This was a 2D Doppler, Color Flow transthoracic echocardiogram. Exam performed portable in ICU/CCU. Left Ventricle Normal size and thickness. The left ventricular ejection fraction is 65 %. Normal diastology for age. Right Ventricle Normal right ventricle. Atria The left and right atria are normal. Bubble contrast study is negative for PFO/ASD. Mitral Valve Trivial mitral valve insufficiency. Tricuspid Valve Trivial tricuspid valve insufficiency. Unable to estimate RV systolic pressure due to insufficient tricuspid regurgitant envelope. Aortic Valve Trisinus/trileaflet aortic valve. Trivial aortic valve insufficiency. Pulmonic Valve The pulmonic valve is not well visualized. Trivial pulmonic valve insufficiency. Great Vessels Mildly dilated aortic root. Medication Performed a rapid injection of agitated mix of 9 cc saline and 1cc air to assess for atrial septal defect. MMode/2D Measurements & Calculations LVIDd: 5.4 cm IVSd: 1.1 cm LVOT diam: 2.2 cm LVIDs: 2.7 cm LVPWd: 1.0 cm LVOT area: 4.0 cm2 RVDd: 3.9 cm FS: 50.7 % Ao root diam: 3.3 cm LAV(MOD-bp): 65.6 ml LVAd ap4: 32.9 cm2 LAV(MOD-bp) Indexed: 35.1 ml/m2 LVLd ap4: 8.0 cm LAV(MOD-sp2): 75.7 ml EDV(MOD-sp4): 108.7 ml LAV(MOD-sp4): 55.5 ml EDV(sp4-el): 113.8 ml LVAs ap4: 16.3 cm2 LVLs ap4: 6.5 cm ESV(MOD-sp4): 34.1 ml ESV(sp4-el): 34.5 ml EF(MOD-sp4): 68.7 % EF(sp4-el): 69.6 % LVAd ap2: 37.2 cm2 SV(MOD-sp4): 74.6 ml SV(MOD-sp2): 89.6 ml LVLd ap2: 8.8 cm EDV(MOD-sp2): 132.7 ml EDV(sp2-el): 133.5 ml LVAs ap2: 18.9 cm2 LVLs ap2: 7.2 cm ESV(MOD-sp2): 43.1 ml ESV(sp2-el): 42.3 ml EF(MOD-sp2): 67.5 % SV(sp4-el): 79.3 ml LA dimension(2D): 3.9 cm LA A4 area: 19.9 cm2 RA A4 area: 22.0 cm2 TAPSE: 2.9 cm Time Measurements MV dec time: 0.17 sec Doppler Measurements & Calculations MV E max lucien: 73.5 cm/sec Lat Peak E' Lucien: 11.4 cm/sec Med Peak E' Lucien: 7.6 cm/sec MV A max lucien: 75.0 cm/sec E/E' lat: 6.5 E/E' med: 9.7 MV E/A: 0.98 Ao V2 max: 159.7 cm/sec LV V1 max: 122.2 cm/sec MV dec slope: 428.0 cm/sec2 Ao max P.3 mmHg LV V1 max P.0 mmHg Ao V2 mean: 103.1 cm/sec LV V1 mean P.8 mmHg Ao mean P.9 mmHg LV V1 mean: 76.1 cm/sec Ao V2 VTI: 31.0 cm LV V1 VTI: 25.2 cm AV (velocity ratio): 0.81 SENDY(I,D): 3.2 cm2 SENDY(V,D): 3.0 cm2 SV(LVOT): 99.6 ml PA V2 max: 99.2 cm/sec PA max PG (full): 0.42 mmHg ECHO/Echo Complete W/ Contrast Interpretation Summary The left ventricular ejection fraction is 65 %. Bubble contrast study is negative for PFO/ASD. Trivial aortic valve insufficiency. Mildly dilated aortic root. Can not rule out a flap. Recommend CT chest for fur ther evaluation. Verbal report given to admitting hospitalist. Ordering Physician: Oscar Neely Referring Physician: Sera Lechuga Performed By: Rina Moody RDCS
[2023-07-08 11:56] LABS: Magnesium 2.3 mg/dL (1.6-2.6); Phosphorus 2.7 mg/dL (2.5-4.9)
[2023-07-08] MEDS: DiphenhydrAMINE 50 MG/ML Syringe 25 MG IV ×2 (13:35→16:02)
[2023-07-08] MEDS: MethylPREDNISolone 125 MG/2 ML Vial 60 MG IV ×3 (13:35→23:16)
[2023-07-08] MEDS: Contrast Allergy Safety Check IV (14:20)
[2023-07-08] MEDS: Famotidine 200 MG/20 ML MDV 20 MG in 0.9% Normal Saline (Pres. free 8 ML 300 MG IV ×2 (15:56→21:00)
--- NOTE | 2023-07-08 16:49 | CT_ITS ---
EXAM: CT ANGIOGRAPHY CHEST WITHOUT AND WITH INTRAVENOUS CONTRAST CLINICAL INDICATION: DISSECTION ? TECHNIQUE: Helically acquired angiography images were obtained of the chest without and with intravenous contrast. This CT exam was performed using one or more of the following dose reduction techniques: automated exposure control, adjustment of the mA and/or kV according to patient size, and/or use of iterative reconstruction technique. MIP reconstructed images were created and reviewed. CONTRAST: IV 100mL [id number] RADIATION DOSE: CTDIvol = 11.42 mGy, DLP = 423.60 mGy-cm COMPARISON: None FINDINGS: PULMONARY ARTERIES: Unremarkable. Normal in caliber. No evidence of pulmonary embolism. AORTA: Unremarkable. Normal in caliber. No evidence of dissection. GREAT VESSELS OF AORTIC ARCH: Unremarkable. Normal in caliber. No evidence of dissection. LUNGS AND PLEURAL SPACES: Elevated left hemidiaphragm. Hyperexpansion of the lungs consistent with underlying COPD. Mild scarring in both lung bases. No mass. No pleural effusion or thickening. No pneumothorax. HEART: Mild cardiomegaly. Coronary artery calcifications are seen. No pericardial effusion. MEDIASTINUM: Unremarkable. No mediastinal or hilar adenopathy. Esophagus is unremarkable. No hiatal hernia. THYROID: Unremarkable. No thyroid lesions. BONES/JOINTS: Degenerative changes throughout the spine. Moderate dextroconvex scoliosis of the thoracolumbar spine. No suspicious lytic or blastic abnormality. LIVER: 4.4 cm probable cyst in the dome of the liver. CT/CTA Chest W/WO Contrast IMPRESSION: 1. There are findings consistent with COPD. There is no evidence of acute chest disease. 2. No evidence of pulmonary embolism or dissection. Electronically Signed: Rogerio Dee MD at 17:11 EST ,
[2023-07-08 16:50] LABS: Bedside Glucose 86 mg/dL (74-106)
[2023-07-08] MEDS: Tamsulosin HCl 0.4 MG Capsule PO (18:07)
[2023-07-08 19:06] LABS: Bedside Glucose 172 mg/dL (74-106)
[2023-07-08] MEDS: Atorvastatin Calcium 80 MG Tablet PO (21:01)
[2023-07-09] VITALS (19 sets, daily range): BP systolic 109–156; BP diastolic 66–87; PULSE 62–84; RESP 14–20; TEMP 36.2–36.8; O2SAT 90–96; BMI 23.3
[2023-07-09 04:10] LABS: Absolute Lymphocyte Count 0.43 X10^3/uL (0.83-4.51); Absolute Neutrophil Count 8.9 X10^3/uL (2.0-7.7); Basophil# 0.02 X10^3/uL; Basophil% 0.2 % (0-1); Hematocrit 43.4 % (40-54); Hemoglobin 14.3 g/dL (13.0-16.5); Lymphocyte # 0.43 X10^3/ul (0.83-4.51); Lymphocyte % 4.5 % (19-41); Mean Corp Hgb Conc 32.9 g/dL (32-36); Mean Corpuscular Hgb 29.9 pg (27.0-32.0); Mean Corpuscular Volume 90.6 fL (80-94); Mean Platelet Vol. 10.2 fl (6.2-12.0); Monocyte# 0.19 X10^3/uL; NRBC Flagged by Analyzer 0 % (0-5); Neutrophil # 8.93 X10^3/uL (2.7-7.7); Neutrophil % 92.8 % (47-70); POSITIVE DIFFERENTIAL YES; Platelet Count 218 K/mm3 (150-450); RBC Distribution Width SD 40.2 fl (35.1-43.9); Red Blood Count 4.79 M/mm3 (4.6-6.2); White Blood Count 9.6 K/mm3 (4.4-11.0)
[2023-07-09 04:37] LABS: Anion Gap 6 (5-15); BUN 19 mg/dL (7-18); BUN/Creat Ratio 17.9 RATIO (10-20); Calcium,Total 8.4 mg/dL (8.5-10.1); Chloride 111 mmol/L (98-107); Cholesterol 139 mg/dL (200); Creatinine, Serum 1.06 mg/dL (0.70-1.30); EST Glomerular Filtration Rate 72 mL/min (>60); Est Glom Filt Rate - Afr Amer 88 mL/min (>60); Estimated Creatinine Clearance 60.21 ml/min; Glucose 178 mg/dL (74-106); High Density Lipoprotein 55 mg/dL; Potassium 4.4 mmol/L (3.5-5.1); Sodium Level 142 mmol/L (136-145); Thyroid Stim Hormone (TSH) 0.24 uIU/mL (0.358-3.74); Triglycerides 62 mg/dL; Very Low Density Lipoprotein 12 mg/dL (5-40)
[2023-07-09] MEDS: DiphenhydrAMINE 50 MG/ML Syringe 25 MG IV (06:42)
[2023-07-09] MEDS: MethylPREDNISolone 125 MG/2 ML Vial 60 MG IV ×2 (06:42→12:58)
--- NOTE | 2023-07-09 09:27 | CASEMGMT ---
Social Work SW met w/pt, completed PHQ-9 w/pt. Pt's score is a 0, does not indicate depression. However, pt did explain to SW that he has slowed down significantly since retiring in 2018. He used to bike ride a lot more, has not been able to due that as much in the last couple of years due to getting older, and not having others to bike ride with at times. Pt states is concerned about his memory more than anything, SW offered support. SW offered a list of mental health agencies, pt not interested at this time. SW did encourage pt to speak to his doctor should he have any symptoms of depression. Pt states understanding. No further social service needs around the PHQ-9 at this time. KENROY Meier
--- NOTE | 2023-07-09 09:44 | PCM.PN.HOSP ---
Reason for Visit Reason for Visit: Diagnoses Homonymous bilateral field defects, left side (07/08/23) Objective Data Objective Data Vital Signs: Vital Signs Temp Pulse Resp BP Pulse Ox O2 Del Method 97.9 F 62 16 137/74 H 94 Room Air 07/09/23 08:00 07/09/23 09:34 07/09/23 09:34 07/09/23 09:34 07/09/23 09:34 07/09/23 09:34 Oxygen Delivery Method Room Air Weight: 157 lb 10.088 oz Body Mass Index (BMI) 23.3 Intake & Output: Intake and Output for Last 24 Hours 07/07/23 07/08/23 07/09/23 23:59 23:59 23:59 Intake Total 1010.00 / 1110.00 1565 / 1565 Output Total 1050 / 1750 1200 / 1200 Balance -40.00 / -640.00 365 / 365 Lab / Micro Data 07/09/23 03:50 07/09/23 03:50 Labs: Laboratory Results - last 24 hr 07/08/23 10:30: POC Glucose 86 07/08/23 10:35: WBC 5.3, RBC 4.76, Hgb 14.0, Hct 43.9, MCV 92.2, MCH 29.4, MCHC 31.9 L, RDW Std Deviation 42.0, RDW Coeff of [place]am[place] 12.3, Plt Count 218, MPV 10.2, Immature Gran % (Auto) 0.200, Neut % (Auto) 55.2, Lymph % (Auto) 28.3, [place] % (Auto) 11.6 H, Eos % (Auto) 3.8, Baso % (Auto) 0.9, Absolute Neuts (auto) 2.9, Absolute Lymphs (auto) 1.49, Nucleated RBC % 0, PT 14.0, INR 1.1, APTT 28.7, Sodium 140, Potassium 4.0, Chloride 109 H, Carbon Dioxide 28.0, Anion Gap 3 L, BUN 23 H, Creatinine 1.09, Estim Creat Clear Calc 58.56, Est GFR (MDRD) Af Amer 85, Est GFR (MDRD) Non-Af 70, BUN/Creatinine Ratio 21.1 H, Glucose 89, Calcium 8.9, Phosphorus 2.7, Magnesium 2.3, Troponin I High Sens 12 07/08/23 18:40: POC Glucose 172 H 07/09/23 03:50: WBC 9.6, RBC 4.79, Hgb 14.3, Hct 43.4, MCV 90.6, MCH 29.9, MCHC 32.9, RDW Std Deviation 40.2, RDW Coeff of Aamir 12.0, Plt Count 218, MPV 10.2, Immature Gran % (Auto) 0.500, Neut % (Auto) 92.8 H, Lymph % (Auto) 4.5 L, [place] % (Auto) 2.0, Eos % (Auto) 0.0, Baso % (Auto) 0.2, Absolute Neuts (auto) 8.9 H, Absolute Lymphs (auto) 0.43 L, Nucleated RBC % 0, Sodium 142, Potassium 4.4, Chloride 111 H, Carbon Dioxide 25.0, Anion Gap 6, BUN 19 H, Creatinine 1.06, Estim Creat Clear Calc 60.21, Est GFR (MDRD) Af Amer 88, Est GFR (MDRD) Non-Af 72, BUN/Creatinine Ratio 17.9, Glucose 178 H, Calcium 8.4 L, Triglycerides 62, Cholesterol 139, LDL Cholesterol 72, VLDL Cholesterol 12, HDL Cholesterol 55, TSH 0.24 L Radiography Diagnostic Testing: Radiology Impression Brain CT 07/08/23 10:31 IMPRESSION: Foci of low attenuation within the posterior parietal and occipital lobes which 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 N.B. : The above Results were Read Back by Cee Arriola MD to Marco Andersen MD, and understanding confirmed on 07/08/2023 10:47:10 (ET). Electronically Signed: Cee Arriola MD at 10:48 EST , ADDENDUM: 07/08/23 1055 IMPRESSION: Foci of low attenuation within the posterior parietal and occipital lobes which 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 N.B. : The above Results were Read Back by Cee Arriola MD to Marco Andersen MD, and understanding confirmed on 07/08/2023 10:47:10 (ET). Electronically Signed: Cee Arriola MD at 10:48 EST , Head/Neck CTA 07/08/23 10:37 IMPRESSION: No evidence for significant stenosis or occlusion in the carotid or vertebral arteries of the neck. No evidence for large vessel occlusion or other focal vascular abnormality in the [place] region. Electronically Signed: Raquel Wynn MD at 11:29 EST , ADDENDUM: 07/08/23 1138 IMPRESSION: No evidence for significant stenosis or occlusion in the carotid or vertebral arteries of the neck. No evidence for large vessel occlusion or other focal vascular abnormality in the [place]. N.B. : The above Results were Read Back by Raquel Wynn MD to Marco Andersen MD, and understanding confirmed on 07/08/2023 11:31:44 (ET). Electronically Signed: Raquel Wynn MD at 11:29 EST , Chest X-Ray 07/08/23 11:10 IMPRESSION: Minimal left basilar atelectasis. Electronically Signed: Cee Arriola MD at 11:32 EST , Echocardiogram 07/08/23 11:53 Interpretation Summary The left ventricular ejection fraction is 65 %. Bubble contrast study is negative for PFO/ASD. Trivial aortic valve insufficiency. Mildly dilated aortic root. Can not rule out a flap. Recommend CT chest for further evaluation. Verbal report given to admitting hospitalist. Ordering Physician: Oscar Neely Referring Physician: Sera Lechuga Performed By: Rina Moody RDCS Chest CTA 07/08/23 16:49 IMPRESSION: 1. There are findings consistent with COPD. There is no evidence of acute chest disease. 2. No evidence of pulmonary embolism or dissection. Electronically Signed: Rogerio Dee MD at 17:11 EST , Rhythm Strip Rhythm Strip: Sinus Rhythm Rate: 78 Ectopy: PVC(s) and PAC(s) Physical Exam Narrative Seen and examined in about 24 hours after tenecteplase. General: Alert, Oriented x3, Cooperative HEENT: Atraumatic, PERRLA, EOMI, Normocephalic, on 1-1 visual test, left quadrantanopia improving. Oral: Oral mucosa moist. No Gingival or Mucosal Lesions/ Ulcerations Neck: Supple, No JVD, Negative Carotid Bruits Chest wall/Lungs: Air entry diminished in bilateral lung bases. No crepitation/rhonchi Cardiovascular: Sinus rhythm, PVC, bradycardia, Normal S1, Normal S2, No M/G/R Abdomen: Bowel Sounds Present, Soft, Non Tender, Non-Distended : Cho catheter removed. Mild bleeding. No dysuria. No renal angle tenderness. No suprapubic tenderness. Extremities: No edema, Capillary Refill Less than 3 Seconds Skin: No rashes, No breakdown Musculoskeletal: No Tenderness to Palpation of Joints or Extremities. ROM intact. Neurological: Cranial nerves II-XII grossly intact, DTR 2+/4. No acute focal neurological deficit. NIH 1. Psych/Mental Status: Normal Affect, Appropriate. Assessment & Plan Assessment/Plan (1) Left homonymous hemianopsia: PLAN: Plan This is 77-year-old gentleman being admitted for left homonymous quadrantanopsia after tenecteplase was given. 1. Acute ischemic stroke/left homonymous quadrantanopsia status post tenecteplase: Patient is being admitted in in ICU after thrombolytics. Patient has history of A-fib but currently sinus bradycardia. Twelve-lead EKG individually reviewed shows sinus bradycardia with PVCs, first-degree block, right bundle branch block. Heart rate 56/min, QTc 430 ms. Chest x-ray initially reviewed shows mild left lung base atelectasis. CT head and CTA head and neck reviewed. CT brain was suggestive of low-attenuation within posterior parietal and occipital lobes. CTA brain does not show hemodynamically significant large vessel stenosis or occlusion. PT, OT, speech therapy/swallow evaluation and management, nursing NIH stroke scale, BP and glucose monitoring and control as per stroke protocol. TSH, A1c fasting lipid profile tomorrow AM. MRI brain and 2D echo with bubble contrast study ordered. Teleneurology consulted. Biometric Fingerprinting Technician consulted. 07/08: Seen by neurologist. Recommended aspirin 81 mg today 24 hours post TNK. Start Eliquis 5 mg twice daily for secondary stroke prevention tomorrow a.m. and discontinue aspirin. Atorvastatin 40 mg daily with LDL goal less than 70. A1c 5.6. Prediabetes or diabetes ruled out. TTE unremarkable. MRI brain shows and confirms right occipital lobe infarct. No hemorrhage. Patient also scowl chronic memory issues suspicion of early dementia. TSH low 0.24. Free T4, B12 ordered. Thiamine as an outpatient as it send out test and takes several days to come back.' 2. Paroxysmal A-fib, not on anticoagulant, PVCs, sinus bradycardia, chronic right bundle branch block: EKG reviewed as mentioned above. Heart rate is controlled. 07/08: Patient is sinograms rhythm. It seems that patient was taking Eliquis but discontinue as stated more about it side and adverse effects of bleeding. 3. BPH on Flomax: Urinary catheter has been inserted prophylactically before tenecteplase was given as per protocol. 4. Chronic degenerative osteoarthritis: Controlled. PT and OT ordered. Living will/advanced directive/end of life care: Patient does have living will or advanced directive. POA is patient's and daughter. After discussion of benefits/risks procedures involved with full code, DNR CC arrest and DNR CC, the patient and his POA his opted for full code. Patient does want artificial life support including intubation, tube feed, ventilator and/chest compression, central venous catheter, vasopressor and DC shock if needed Total time spent in [id number] encounter in discussion of advanced directive 17 minutes. L= Laboratory Results 07/08/23 10:30: POC Glucose 86 07/08/23 18:40: POC Glucose 172 H 07/09/23 03:50: WBC 9.6, RBC 4.79, Hgb 14.3, Hct 43.4, MCV 90.6, MCH 29.9, MCHC 32.9, RDW Std Deviation 40.2, RDW Coeff of Aamir 12.0, Plt Count 218, MPV 10.2, Immature Gran % (Auto) 0.500, Neut % (Auto) 92.8 H, Lymph % (Auto) 4.5 L, [place] % (Auto) 2.0, Eos % (Auto) 0.0, Baso % (Auto) 0.2, Absolute Neuts (auto) 8.9 H, Absolute Lymphs (auto) 0.43 L, Nucleated RBC % 0, Sodium 142, Potassium 4.4, Chloride 111 H, Carbon Dioxide 25.0, Anion Gap 6, BUN 19 H, Creatinine 1.06, Estim Creat Clear Calc 60.21, Est GFR (MDRD) Af Amer 88, Est GFR (MDRD) Non-Af 72, BUN/Creatinine Ratio 17.9, Glucose 178 H, Hemoglobin A1c 5.6, Calcium 8.4 L, Triglycerides 62, Cholesterol 139, LDL Cholesterol 72, VLDL Cholesterol 12, HDL Cholesterol 55, TSH 0.24 L Clinical Impression(s) from Imaging Studies Brain CT 07/08/23 10:31 IMPRESSION: Foci of low attenuation within the posterior parietal and occipital lobes which 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 Head/Neck CTA 07/08/23 10:37 IMPRESSION: No evidence for significant stenosis or occlusion in the carotid or vertebral arteries of the neck. No evidence for large vessel occlusion or other focal vascular abnormality in the [place]. Chest X-Ray 07/08/23 11:10 IMPRESSION: Minimal left basilar atelectasis. Echocardiogram 07/08/23 11:53 Interpretation Summary The left ventricular ejection fraction is 65 %. Bubble contrast study is negative for PFO/ASD. Trivial aortic valve insufficiency. Mildly dilated aortic root. Can not rule out a flap. Recommend CT chest for further evaluation. Verbal report given to admitting hospitalist. Ordering Physician: Oscar Neely Referring Physician: Sera Lechuga Performed By: Rina Moody RDCS Chest CTA 07/08/23 16:49 IMPRESSION: 1. There are findings consistent with COPD. There is no evidence of acute chest disease. 2. No evidence of pulmonary embolism or dissection. Brain MRI 07/09/23 10:00 IMPRESSION: Acute right posterior cerebral artery territory infarct. Chronic involutional and white matter changes. Charges/Coding Visit Charges Inpatient E&M: 71372 Subs Hosp L3
--- NOTE | 2023-07-09 10:00 | MRI_ITS ---
ACR Level 3 findings have been noted. An addendum which confirms receipt of the report will follow. HISTORY: CVA -- MRI 24 hours after IV thrombolytic administration. TECHNIQUE: Multiplanar and multisequence MR images of the brain were obtained without contrast. 280 images. COMPARISON: CT prior day. FINDINGS: BRAIN PARENCHYMA: Moderate zone of restricted diffusion in the right occipital lobe. Multiple foci and small zones of increased T2 FLAIR signal in the bilateral cerebral white matter. No acute intracranial hemorrhage identified. CSF SPACES: Mild sulcal effacement secondary to right occipital cytotoxic edema. No significant midline shift or other mass effect.No extra-axial fluid collection. VASCULAR SYSTEM: Major intracranial flow voids are maintained. PARANASAL SINUSES AND MASTOID AIR CELLS: Mild left frontal ethmoid mucosal thickening. ORBITS: Symmetric contents. MRI/Brain without Contrast IMPRESSION: Acute right posterior cerebral artery territory infarct. Chronic involutional and white matter changes. Electronically Signed: Raquel Wynn MD at 12:32 EST ,
[2023-07-09] MEDS: Tamsulosin HCl 0.4 MG Capsule PO (10:28)
[2023-07-09] MEDS: Multivitamins,Therapeutic Tablet 1 TABLET PO (10:28)
[2023-07-09] MEDS: Famotidine 20 MG Tablet PO ×2 (10:28→20:45)
--- NOTE | 2023-07-09 10:33 | CASEMGMT ---
ORVILLE MORTON Assessment Face to Face with patient for initial transition planning/care coordination assessment. ORVILLE MORTON introduced self and role at [facility], pt voices understanding. Pt is A&Ox4 and is resting comfortably in bed and is calm. Pt at bedside. Care providers, pharmacy, and demographics verified. Admitting dx: Lt upper quadrantopia, Stroke LACE Strata: 1 PCP: Alexandrea Specialists: Dr. Hudson (Urologist in [facility]), [facility] Preferred Pharmacy: [facility] - [place] Insurance: [facility] A/B, Secondary is [employer] senior supplement Prescription Benefit: Yes LNOK: Perla Shelbyglenys (W) Living Arrangements: Pt lives with his in a single story home with a BM with HR with 2 steps to enter the home with no issues. ADLs/IADLs: Ind Transportation: Pt and pt drive DME: Denies all DME uses or needs HHC/SNF: Denies history or needs. Pt?s goal: Home with no additional needs. Plan: Pt states that he is completely independent at home and states that he feels safe and comfortable discharging home with no additional needs at this time. Pt refuses HHC and OP therapy. PT/OT eval is pending. CM to follow for safe DC home. Georgi Alvarado RN, CM
[2023-07-09 10:48] LABS: Hemoglobin A1c 5.6 % (3.8-5.6)
--- NOTE | 2023-07-09 14:07 | CON.PCM.NE_ITS ---
Assessment and Plan: Neuro Assessment/Plan #cardioembolic stroke secondary to atrial fibrillation -TTE unremarkable -MRI brain confirms R occipital lobe infarct, no hemorrhage -CTA shows no signficiant stenosis -Give ASA 81 today when 24 hours post TNK. Tomorrow (07/09) please discontinue ASA and start eliquis 5 bid for secondary stroke prevention -Start atorvastatin 40 -blood pressure goal is normotension -Goal LDL<70, goal HbA1c <7 -chronic memory complaints: fu TSH, B12, thiamine. TSH is low, please follow up on T4 -outpatient sleep study to screen for sleep apnea -Recommended low salt, Mediterranean diet -Recommend aeorbic exercise 30 minutes? daily -Follow up with neuroligst in 4-6 weeks. Follow up with PCP in 2 weeks. -PT/OT -Will sign off now. Please reach out if any questions or concerns HPI Consult Data Date of Consult: 07/09/23 HPI Narrative HPI Narrative: 77 yo M with afib not on AC presenting with L upper field vision loss s/p TNK. LKW on 07/07 at 8 am. No deficits at baseline. Develop acute onset of L homonymous hemianopais. Receved TNK at approx 10:45 am. CTH showed area of acute infarct itn post occipital lobe. CTA showed no severe stenosis or proximal LVO. Patient was initially on Eliquis for 1 month after being diagnosed with afib in itially. He decided to self discontinued due to concern of reading about potential adverse effects. Spoke with his statistics intern and decided to stay on ASA 81. Currently feels vision is improving after TNK [facility] Medical History BPH (benign prostatic hyperplasia) New onset atrial fibrillation (04/18/21) Osteoarthritis Right bundle branch block (RBBB) Home Medications glucosamine-chondroitin 750 mg-600 mg tablet 1 ea PO DAILY 04/12/18 [History Last Taken 07/07/23] ibuprofen 600 mg tablet 600 mg PO Q6H PRN Pain 04/12/18 [History Last Taken Unknown] krill ifb-svuet-7-dha-epa 300 mg-90 mg (27 mg-45 mg) capsule 1 ea PO DAILY 04/12/18 [History Last Taken 07/07/23] multivitamin with folic acid 400 mcg tablet (Thera) 1 tab PO DAILY 04/12/18 [History Last Taken 07/07/23] tamsulosin 0.4 mg capsule 0.4 mg PO DAILY 04/12/18 [History Last Taken 07/07/23] turmeric 450 mg-turmeric root extract 50 mg capsule 1 ea PO DAILY 04/12/18 [History Last Taken 07/07/23] aspirin 325 mg tablet 325 mg PO DAILY 04/24/21 [History Last Taken 07/07/23] Allergy/AdvReac Type Severity Reaction Status Date / Time Iodinated Contrast Media Allergy Intermediate Hives Verified 07/08/23 16:34 bisacodyl Allergy Mild itching Verified 10/09/22 13:20 [From Dulcolax (bisacodyl)] polyethylene glycol 3350 Allergy Mild itching Verified 10/09/22 13:20 [From Miralax] hydrocodone [From Thayne] Allergy Hives Verified 10/09/22 13:20 Family History Father Heart disease Brother Atrial fibrillation Surgical History H/O discectomy History of carpal tunnel release History of colonoscopy History of herniorrhaphy Social History household members: spouse Smoking Status: Former smoker EEG Results Procedure Details EEG Procedure Details: TREVOR ESQUIVEL is a 77 year old M with a past medical history of , who presents for evaluation of Electroencephalogram on DATE at TIME NIHSS NIHSS Nursing Documentation NIHSS Nursing Documentation: Thrombolytic: Vital Signs & NIHSS Start: 07/08/23 10:37 Text: Assess and document vital signs and NIHSS Status: Complete within 15 minutes of tenecteplase bolus administration Freq: [id number],Q2H Protocol: Activity Type Activity Date Activity User E-sign Co-sign Detail Recorded Client Recorded Date Recorded By Document 07/08/23 11:45 ZA Desktop 07/08/23 11:48 ZA 07/08/23 11:45 Vital Signs [Temperature Protocol: VS] -Temperature (97.8 F-99.1 F) 97.5 F L -Temperature Source Oral [Pulse] -Pulse Rate (60-100) 63 -Pulse Location Monitor [Respirations] -Respiratory Rate (12-18) 18 -Respiratory rate source Monitor -Pulse Oximetry 98 -Oxygen Delivery Method Room Air [Blood Pressure] -Blood Pressure (90/60-120/80) 144/77 H -Blood Pressure Mean (mm Hg) 99 -Source Monitor -Position Semi-Fowlers -Blood Pressure Location Right Arm -Is the SBP > or = 180 No -Is the DBP > or = 105 No NIH Stroke Scale [NIHSS] A score of 0 is normal or asymptomatic . Total possible score is 42. Inpatient: RN or Physician to activate a stroke alert for onset of new stroke symptoms or with NIHSS increase >/= 3 points. Following change in neurological status, NIHSS will be performed per physician order or more frequently PRN. -1a. Level of Consciousness Alert; keenly responsive -1b. LOC Questions Answers BOTH questions correctly. -1c. LOC Commands Performs both tasks correctly . -2. Best Gaze Normal -3. Visual Complete hemianopia -4. Facial Palsy Normal symmetrical movements -5a. Left Arm No drift; arm holds 90 (or 45 ) degrees for full 10 seconds -5b. Right Arm No drift; arm holds 90 (or 45 ) degrees for full 10 seconds -6a. Left Leg No drift; leg holds 30-degree position for full 5 seconds -6b. Right Leg No drift; leg holds 30-degree position for full 5 seconds -7. Limb Ataxia Absent -8. Sensory Normal; no sensory loss -9. Best Language No aphasia; normal -10. Dysarthria Normal -11. Extinction and Inattention No abnormality -Total 2 Query Text:A score of 0 is normal or asymptomatic. Total possible score is 42 . ED: Notify Physician for NIHSS increase by > / = 3 points. Inpatient: RN or Physician to activate a stroke alert for NIHSS increase of > / = 3 points. Thrombolytic: Vital Signs & NIHSS Start: 07/08/23 12:25 Text: Assess and document vital signs and NIHSS Status: Active within 15 minutes prior to Tenecteplase administration Freq: Q4H Protocol: Activity Type Activity Date Activity User E-sign Co-sign Detail Recorded Client Recorded Date Recorded By Document 07/09/23 11:00 HN Desktop 07/09/23 11:04 HNG 07/09/23 11:00 Vital Signs [Pulse] -Pulse Rate (60-100) 67 -Pulse Location Monitor [Respirations] -Respiratory Rate (12-18) 20 H -Respiratory rate source Monitor -Pulse Oximetry 91 -Oxygen Delivery Method Room Air [Blood Pressure] -Blood Pressure (90/60-120/80) 138/84 H -Blood Pressure Mean (mm Hg) 102 -Source Monitor -Position Semi-Fowlers -Blood Pressure Location Right Arm -Is the SBP > or = 180 No -Is the DBP > or = 105 No NIH Stroke Scale [NIHSS] A score of 0 is normal or asymptomatic . Total possible score is 42. Inpatient: RN or Physician to activate a stroke alert for onset of new stroke symptoms or with NIHSS increase >/= 3 points. Following change in neurological status, NIHSS will be performed per physician order or more frequently PRN. -1a. Level of Consciousness Alert; keenly responsive -1b. LOC Questions Answers BOTH questions correctly. -1c. LOC Commands Performs both tasks correctly . -2. Best Gaze Normal -3. Visual Partial hemianopia -4. Facial Palsy Minor paralysis (flattened nasolabial fold , asymmetry on smiling) -5a. Left Arm No drift; arm holds 90 (or 45 ) degrees for full 10 seconds -5b. Right Arm No drift; arm holds 90 (or 45 ) degrees for full 10 seconds -6a. Left Leg No drift; leg holds 30-degree position for full 5 seconds -6b. Right Leg No drift; leg holds 30-degree position for full 5 seconds -7. Limb Ataxia Absent -8. Sensory Normal; no sensory loss -9. Best Language No aphasia; normal -10. Dysarthria Normal -11. Extinction and Inattention No abnormality -Total 2 Query Text:A score of 0 is normal or asymptomatic. Total possible score is 42 . ED: Notify Physician for NIHSS increase by > / = 3 points. Inpatient: RN or Physician to activate a stroke alert for NIHSS increase of > / = 3 points. Physical Exam Narrative Exam MS: awake, alert, oriented x 3, follows commands, able to name, no aphasia, not dysarthric CN: L homonymous upper quadrantanopsia, EOMI ?no facial droop, nml facial sensation M: ?Antigravity in all extremities, no drift S: nml to LT in all extremities C: no dysmetria Lab / Micro Data 07/09/23 03:50 07/09/23 03:50 Labs: Laboratory Results - last 24 hr 07/08/23 10:30: POC Glucose 86 07/08/23 18:40: POC Glucose 172 H 07/09/23 03:50: WBC 9.6, RBC 4.79, Hgb 14.3, Hct 43.4, MCV 90.6, MCH 29.9, MCHC 32.9, RDW Std Deviation 40.2, RDW Coeff of Aamir 12.0, Plt Count 218, MPV 10.2, Immature Gran % (Auto) 0.500, Neut % (Auto) 92.8 H, Lymph % (Auto) 4.5 L, Slope % (Auto) 2.0, Eos % (Auto) 0.0, Baso % (Auto) 0.2, Absolute Neuts (auto) 8.9 H, Absolute Lymphs (auto) 0.43 L, Nucleated RBC % 0, Sodium 142, Potassium 4.4, Chloride 111 H, Carbon Dioxide 25.0, Anion Gap 6, BUN 19 H, Creatinine 1.06, Estim Creat Clear Calc 60.21, Est GFR (MDRD) Af Amer 88, Est GFR (MDRD) Non-Af 72, BUN/Creatinine Ratio 17.9, Glucose 178 H, Hemoglobin A1c 5.6, Calcium 8.4 L, Triglycerides 62, Cholesterol 139, LDL Cholesterol 72, VLDL Cholesterol 12, HDL Cholesterol 55, TSH 0.24 L Rhythm Strip Rhythm Strip: Sinus Rhythm Rate: 78 Ectopy: PVC(s) and PAC(s) Imaging Radiology Impression Echocardiogram 07/08/23 11:53 Interpretation Summary The left ventricular ejection fraction is 65 %. Bubble contrast study is negative for PFO/ASD. Trivial aortic valve insufficiency. Mildly dilated aortic root. Can not rule out a flap. Recommend CT chest for further evaluation. Verbal report given to admitting hospitalist. Ordering Physician: Oscar Neely Referring Physician: Sera Lechuga Performed By: Rina Moody RDCS Chest CTA 07/08/23 16:49 IMPRESSION: 1. There are findings consistent with COPD. There is no evidence of acute chest disease. 2. No evidence of pulmonary embolism or dissection. Electronically Signed: Rogerio Dee MD at 17:11 EST , Brain MRI 07/09/23 10:00 IMPRESSION: Acute right posterior cerebral artery territory infarct. Chronic involutional and white matter changes. Electronically Signed: Raquel Wynn MD at 12:45 EST , ADDENDUM: 07/09/23 1301 IMPRESSION: Acute right posterior cerebral artery territory infarct. Chronic involutional and white matter changes. N.B. : Latricia Stern RN, confirmed on 07/09/2023 12:54:08 (ET) that the healthcare facility has received the radiology report. Electronically Signed: Raquel Wynn MD at 12:45 EST , Active Medications Active Medications Active Medications: Current Medications Generic Name Dose Route Start Last Admin Trade Name Freq PRN Reason Stop Dose Admin Acetaminophen 650 mg 07/08/23 12:25 Acetaminophen 325 Mg Tablet PO Q4H PRN PRN Pain 1-10 or Fever Atorvastatin Calcium 80 mg 07/08/23 22:00 07/08/23 21:01 Atorvastatin Calcium 80 Mg Tablet PO 80 mg QHS DREA Administration Diphenhydramine HCl 50 mg 07/08/23 12:25 Diphenhydramine 50 Mg/Ml Syringe IV X1 PRN Allergic Reaction Diphenhydramine HCl 25 mg 07/08/23 15:16 07/09/23 06:42 Diphenhydramine 50 Mg/Ml Syringe IV 25 mg Q6H PRN PRN Administration ITCHING Famotidine 20 mg 07/09/23 10:00 07/09/23 10:28 Famotidine 20 Mg Tablet PO 20 mg BID DREA Administration Hydralazine HCl 5 mg 07/08/23 12:25 Hydralazine 20 Mg/Ml Vial IV Q30M PRN to maintain BP goals Nicardipine/Sodium Chloride 20 mg in 200 mls @ 50 mls/hr 07/08/23 12:25 Cardene-Alonzo 20 Mg/200 Ml Soln CONT INF Q4H PRN See Instructions Protocol 5 MG/HR Labetalol HCl 20 mg 07/08/23 12:25 Labetalol (Prefilled) 20 Mg/4 Ml IV X1 PRN BP Goals Labetalol HCl 10 - 20 mg 07/08/23 12:25 Labetalol (Prefilled) 20 Mg/4 Ml IV Q10M PRN PRN to Maintain BP Goals Methylprednisolone 60 mg 07/08/23 18:00 07/09/23 12:58 Methylprednisolone 125 Mg/2 Ml Vial IV 60 mg Q6 DREA Administration Multivitamins 1 tablet 07/09/23 08:00 07/09/23 10:28 Multivitamins,Therapeutic Tablet PO 1 tablet DAILYCM DREA Administration Tamsulosin HCl 0.4 mg 07/08/23 14:00 07/09/23 10:28 Tamsulosin Hcl 0.4 Mg Capsule PO 0.4 mg DAILY DREA Administration
[2023-07-09] MEDS: Aspirin E.C. 81 MG Tablet PO (15:53)
[2023-07-09 16:45] LABS: T4 Free Direct 1.12 ng/dL (0.76-1.46)
[2023-07-09 17:06] LABS: Vitamin B12 377 pg/mL (211-911)
[2023-07-09] MEDS: Atorvastatin Calcium 40 MG Tablet PO (20:45)
[2023-07-10 02:00] VITALS: BP 126/82; PULSE 62; RESP 16; TEMP 37; O2SAT 94
[2023-07-10 04:10] VITALS: BMI 22.8
[2023-07-10 04:17] LABS: Absolute Lymphocyte Count 0.92 X10^3/uL (0.83-4.51); Absolute Neutrophil Count 8.8 X10^3/uL (2.0-7.7); Basophil# 0.02 X10^3/uL; Basophil% 0.2 % (0-1); Hematocrit 40.6 % (40-54); Hemoglobin 13.2 g/dL (13.0-16.5); Lymphocyte # 0.92 X10^3/ul (0.83-4.51); Lymphocyte % 8.8 % (19-41); Mean Corp Hgb Conc 32.5 g/dL (32-36); Mean Corpuscular Hgb 29.7 pg (27.0-32.0); Mean Corpuscular Volume 91.4 fL (80-94); Mean Platelet Vol. 10.3 fl (6.2-12.0); Monocyte# 0.66 X10^3/uL; Monocyte% 6.3 % (0-10); NRBC Flagged by Analyzer 0 % (0-5); Neutrophil # 8.84 X10^3/uL (2.7-7.7); Neutrophil % 84.2 % (47-70); Platelet Count 218 K/mm3 (150-450); RBC Distribution Width SD 40.3 fl (35.1-43.9); Red Blood Count 4.44 M/mm3 (4.6-6.2); White Blood Count 10.5 K/mm3 (4.4-11.0)
[2023-07-10 04:32] LABS: Anion Gap 5 (5-15); BUN 24 mg/dL (7-18); Calcium,Total 8.8 mg/dL (8.5-10.1); Chloride 109 mmol/L (98-107); Creatinine, Serum 1.09 mg/dL (0.70-1.30); EST Glomerular Filtration Rate 70 mL/min (>60); Est Glom Filt Rate - Afr Amer 85 mL/min (>60); Estimated Creatinine Clearance 58.23 ml/min; Glucose 114 mg/dL (74-106); Potassium 3.9 mmol/L (3.5-5.1); Sodium Level 142 mmol/L (136-145)
[2023-07-10 08:00] VITALS: BP 138/70; PULSE 64; RESP 15; TEMP 36.9; O2SAT 95
--- NOTE | 2023-07-10 11:29 | DCINST_ITS ---
Discharge Instructions Diet Discharge Diet: Low fat / Low cholesterol and 2000 mg Sodium Diet Activity Discharge Activity: Return to Normal Activity and May Not Drive (until sees Neuro/eye check up) Weight Bearing Status: Weight bearing as tolerated Dressing / Incision Call your doctor if you observe: Fever of 101 or Higher, Coldness, Increased Pain, Numbness or Tingling, Change in Color, Inability to urinate, Inability to have a bowel movement, Shortness of breath, Dizziness, Fainting spells, Swelling in the ankles, Chest pain, Prolonged hiccupping, Increased palpitations (irregular heartbeat) and Calf discomfort Follow Up Care When: IN 2 WEEKS Test Results: Test results from this visit will be discussed in further detail at your follow- up appointment, if applicable. Discharge Plan Admission Admit Date/Time: 07/08/23 11:15 Primary Reason for Your Visit: acute right occipital lobe infarct. Attending Provider: Oscar Neely Primary Care Provider: Sera Lechuga Consulting Providers: Gerard Cole; Sumi Parker; Mary Mejia; Dodie Mustafa; Suzanna Paulino; Juan R Lang; Maryjane Elliott; Víctor Campbell; Hardik Rodríguez; Malia Wilson; Bladimir Kaiser; Radha Cox; Claude Waller; Mansoor Huang; Quan Dior; John Pizano; Rafa Casillas; Loyda Nieves; Montana Conley Instructions Additional Instructions / Restrictions: Patient can follow-up with outside neurologist Dr. Eugene Grace a lot of the tone. Recommend to follow-up in 2 weeks to 4 weeks. Discussed with the patient and his at the bedside Discharge Orders/Prescriptions Prescriptions: New atorvastatin 40 mg Tablet 40 mg PO QHS 30 Days Qty: 30 3RF Eliquis 5 mg Tablet 5 mg PO BID 30 Days Qty: 60 3RF Rx Instructions: Discontinue if platelet count drops less than 50,000 or hemoglobin less than 8 g% Continued tamsulosin 0.4 MG capsule 0.4 mg PO DAILY glucosamine-chondroitin 1 EACH tablet 1 ea PO DAILY krill [id number]-epa 1 EACH capsule 1 ea PO DAILY multivitamin with folic acid [Thera] 1 TABLET tablet 1 tab PO DAILY Changed ibuprofen 600 MG tablet 400 mg PO Q6H PRN (Reason: Pain) 3 Days Qty: 0 0RF Discontinued aspirin 325 mg tablet 325 mg PO DAILY turmeric-turmeric root extract 1 EACH capsule 1 ea PO DAILY Referrals / Follow Up: Sera Lechuga MD [Primary Care Provider] - Within 1 Week Aldo Tim MD [Non-Staff -Ordering Privileges] - Within 2 Weeks Disposition Disposition (needs filled in before D/C Order can be placed): Home, Self Care
--- NOTE | 2023-07-10 11:34 | DS.PCM_ITS ---
Providers Date of Admission: 07/08/23 Date of Discharge: 07/10/23 Primary Care Physician: Dr. Sera Lechuga MD Consultations 07/08/23 10:37 Consult: Microchip Specialist / Pulmonary Medicine Routine Consulting Provider: Pulmonary Medicine sandra [facility] Reason for Consult: stroke for thrombolytic administration EMERGENT Consult: Yes MD Notified: Yes Date Notified: 07/08/23 Time Notified: 12:47 Method of Notification: Text Comments:: Consult may be done in ED or ICU 07/08/23 12:25 Consult: Microchip Specialist / Pulmonary Medicine Routine Consulting Provider: Magdalena Molina Reason for Consult: stroke for thrombolytic EMERGENT Consult: Yes MD Notified: Yes Date Notified: 07/08/23 Time Notified: 11:18 Method of Notification: ED Physician Initiated Consult: Tele-Neurology Routine Consulting Provider: [facility] Reason for Consult: stroke for thrombolytic EMERGENT Consult: No MD Notified: Yes Date Notified: 07/08/23 Time Notified: 11:18 Method of Notification: ED Physician Initiated Comments:: ED Nursing Unit Staff Notify [facility] of Tele-Neurology Consult: Yes Reason For Visit: LEFT UPPER QUADRANTOPIA, STROKE Diagnosis Discharge Diagnosis (1) Left homonymous hemianopsia: Status: Acute Code(s): H53.462 - Homonymous bilateral field defects, left side Plan This is 77-year-old gentleman being admitted for left homonymous quadrantanopsia after tenecteplase was given. 1. Acute ischemic stroke/left homonymous quadrantanopsia status post tenecteplase: Patient is being admitted in in ICU after thrombolytics. Patient has history of A-fib but currently sinus bradycardia. Twelve-lead EKG individually reviewed shows sinus bradycardia with PVCs, first-degree block, right bundle branch block. Heart rate 56/min, QTc 430 ms. Chest x-ray initially reviewed shows mild left lung base atelectasis. CT head and CTA head and neck reviewed. CT brain was suggestive of low-attenuation within posterior parietal and occipital lobes. CTA brain does not show hemodynamically significant large vessel stenosis or occlusion. PT, OT, speech therapy/swallow evaluation and management, nursing NIH stroke scale, BP and glucose monitoring and control as per stroke protocol. TSH, A1c fasting lipid profile tomorrow AM. MRI brain and 2D echo with bubble contrast study ordered. Teleneurology consulted. Microchip Specialist consulted. 07/08: Seen by neurologist. Recommended aspirin 81 mg today 24 hours post TNK. Start Eliquis 5 mg twice daily for secondary stroke prevention tomorrow a.m. and discontinue aspirin. Atorvastatin 40 mg daily with LDL goal less than 70. A1c 5.6. Prediabetes or diabetes ruled out. TTE unremarkable. MRI brain shows and confirms right occipital lobe infarct. No hemorrhage. Patient also scowl chronic memory issues suspicion of early dementia. TSH low 0.24. Free T4, B12 ordered. Thiamine as an outpatient as it send out test and takes several days to come back.' 07/09: Started on Eliquis 5 mg twice daily today. Home aspirin discontinued. Avoid NSAIDs or other blood thinners. Free T4 normal 1.12. B12, low normal, 377 and folate normal. Prescription for B12 sent. Follow-up with PCP in 2 week s and neurologist within 1 month as described in discharge instruction. 2. Paroxysmal A-fib, not on anticoagulant, PVCs, sinus bradycardia, chronic right bundle branch block: EKG reviewed as mentioned above. Heart rate is controlled. 07/08: Patient is sinograms rhythm. It seems that patient was taking Eliquis but discontinue as stated more about it side and adverse effects of bleeding. 3. BPH on Flomax: Urinary catheter has been inserted prophylactically before tenecteplase was given as per protocol. 4. Chronic degenerative osteoarthritis: Controlled. PT and OT ordered. Living will/advanced directive/end of life care: Patient does have living will or advanced directive. POA is patient's and daughter. After discussion of benefits/risks procedures involved with full code, DNR CC arrest and DNR CC, the patient and his POA his opted for full code. Patient does want artificial life support including intubation, tube feed, ventilator and/chest compression, central venous catheter, vasopressor and DC shock if needed Discharge medication reconciliation done. Discharge follow-up instructions completed. Discharge process discussed with the patient and all questions were answered to patient's satisfaction. Follow with PCP in 1 to 2 weeks Total time spent, exact 35 minutes on discharge meds reconciliation, examination, coordination of care with nurses and ancillary staff, review of imaging and blood test and discussion with the patient on follow-up instr uctions. Laboratory Results 07/08/23 10:30: POC Glucose 86 07/08/23 18:40: POC Glucose 172 H 07/09/23 03:50: WBC 9.6, RBC 4.79, Hgb 14.3, Hct 43.4, MCV 90.6, MCH 29.9, MCHC 32.9, RDW Std Deviation 40.2, RDW Coeff of Aamir 12.0, Plt Count 218, MPV 10.2, Immature Gran % (Auto) 0.500, Neut % (Auto) 92.8 H, Lymph % (Auto) 4.5 L, [place] % (Auto) 2.0, Eos % (Auto) 0.0, Baso % (Auto) 0.2, Absolute Neuts (auto) 8.9 H, Absolute Lymphs (auto) 0.43 L, Nucleated RBC % 0, Sodium 142, Potassium 4.4, Chloride 111 H, Carbon Dioxide 25.0, Anion Gap 6, BUN 19 H, Creatinine 1.06, Estim Creat Clear Calc 60.21, Est GFR (MDRD) Af Amer 88, Est GFR (MDRD) Non-Af 72, BUN/Creatinine Ratio 17.9, Glucose 178 H, Hemoglobin A1c 5.6, Calcium 8.4 L, Triglycerides 62, Cholesterol 139, LDL Cholesterol 72, VLDL Cholesterol 12, HDL Cholesterol 55, TSH 0.24 L Clinical Impression(s) from Imaging Studies Brain CT 07/08/23 10:31 IMPRESSION: Foci of low attenuation within the posterior parietal and occipital lobes which 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 Head/Neck CTA 07/08/23 10:37 IMPRESSION: No evidence for significant stenosis or occlusion in the carotid or vertebral arteries of the neck. No evidence for large vessel occlusion or other focal vascular abnormality in the [place] region. Chest X-Ray 07/08/23 11:10 IMPRESSION: Minimal left basilar atelectasis. Echocardiogram 07/08/23 11:53 Interpretation Summary The left ventricular ejection fraction is 65 %. Bubble contrast study is negative for PFO/ASD. Trivial aortic valve insufficiency. Mildly dilated aortic root. Can not rule out a flap. Recommend CT chest for further evaluation. Verbal report given to admitting hospitalist. Ordering Physician: Oscar Neely Referring Physician: Sera Lechuga Performed By: Rina Moody RDCS Chest CTA 07/08/23 16:49 IMPRESSION: 1. There are findings consistent with COPD. There is no evidence of acute chest disease. 2. No evidence of pulmonary embolism or dissection. Brain MRI 07/09/23 10:00 IMPRESSION: Acute right posterior cerebral artery territory infarct. Chronic involutional and white matter changes. Medications at Discharge Home Medications glucosamine-chondroitin 750 mg-600 mg tablet 1 ea PO DAILY 04/12/18 krill pna-oqfgm-2-dha-epa 300 mg-90 mg (27 mg-45 mg) capsule 1 ea PO DAILY 04/12/18 multivitamin with folic acid 400 mcg tablet (Thera) 1 tab PO DAILY 04/12/18 tamsulosin 0.4 mg capsule 0.4 mg PO DAILY 04/12/18 apixaban 5 mg tablet (Eliquis) 5 mg PO BID 30 days #60 tabs 07/10/23 atorvastatin 40 mg tablet 40 mg PO QHS 30 days #30 tabs 07/10/23 ibuprofen 600 mg tablet 400 mg (0.6667 x 600 mg) PO Q6H PRN Pain 3 days #0 tabs 07/10/23 mecobalamin (vitamin B12) 1,000 mcg chewable tablet 1,000 mcg PO DAILY #30 tabs 07/10/23 Physical Exam Narrative Seen and examined on the day of discharge. Status post tenecteplase. General: Alert, Oriented x3, Cooperative HEENT: Atraumatic, PERRLA, EOMI, Normocephalic, on - visual test, left quadrantanopia improved since September 01 exam. Oral: Oral mucosa moist. No Gingival or Mucosal Lesions/ Ulcerations Neck: Supple, No JVD, Negative Carotid Bruits Chest wall/Lungs: Air entry diminished in bilateral lung bases. No crepitation/rhonchi Cardiovascular: Sinus rhythm, PVC, bradycardia, Normal S1, Normal S2, No M/G/R Abdomen: Bowel Sounds Present, Soft, Non Tender, Non-Distended : Cho catheter removed. Mild bleeding. No dysuria. No renal angle tenderness. No suprapubic tenderness. Extremities: No edema, Capillary Refill Less than 3 Seconds Skin: No rashes, No breakdown Musculoskeletal: No Tenderness to Palpation of Joints or Extremities. ROM intact. Neurological: Cranial nerves II-XII grossly intact, DTR 2+/4. No acute focal neurological deficit. NIH 1. Psych/Mental Status: Normal Affect, Appropriate. Weight / BMI Weight Weight: 154 lb 15.759 oz Body Mass Index (BMI) 22.8 ABG / Lab / Microbiology Data 07/10/23 03:55 07/10/23 03:55 Laboratory: Laboratory Results - last 24 hr 07/09/23 16:05: Vitamin B12 377, Folate 19.80, Free T4 1.12 07/10/23 03:55: WBC 10.5, RBC 4.44 L, Hgb 13.2, Hct 40.6, MCV 91.4, MCH 29.7, MCHC 32.5, RDW Std Deviation 40.3, RDW Coeff of Aamir 12.0, Plt Count 218, MPV 10.3, Immature Gran % (Auto) 0.500, Neut % (Auto) 84.2 H, Lymph % (Auto) 8.8 L, [place] % (Auto) 6.3, Eos % (Auto) 0.0, Baso % (Auto) 0.2, Absolute Neuts (auto) 8.8 H, Absolute Lymphs (auto) 0.92, Nucleated RBC % 0, Sodium 142, Potassium 3.9, Chloride 109 H, Carbon Dioxide 28.0, Anion Gap 5, BUN 24 H, Creatinine 1.09, Estim Creat Clear Calc 58.23, Est GFR (MDRD) Af Amer 85, Est GFR (MDRD) Non-Af 70, BUN/Creatinine Ratio 22.0 H, Glucose 114 H, Calcium 8.8 Radiography Diagnostic Testing: Radiology Impression Brain MRI 07/09/23 10:00 IMPRESSION: Acute right posterior cerebral artery territory infarct. Chronic involutional and white matter changes. Electronically Signed: Raquel Wynn MD at 12:45 EST , ADDENDUM: 07/09/23 1301 IMPRESSION: Acute right posterior cerebral artery territory infarct. Chronic involutional and white matter changes. N.B. : Latricia Stern RN, confirmed on 07/09/2023 12:54:08 (ET) that the healthcare facility has received the radiology report. Electronically Signed: Raquel Wynn MD at 12:45 EST , D/C Instructions Discharge Diet: Low fat / Low cholesterol and 2000 mg Sodium Diet Weight Bearing Status: Weight bearing as tolerated Call your doctor if you observe: Fever of 101 or Higher, Coldness, Increased Pain, Numbness or Tingling, Change in Color, Inability to urinate, Inability to have a bowel movement, Shortness of breath, Dizziness, Fainting spells, Swelling in the ankles, Chest pain, Prolonged hiccupping, Increased palpitations (irregular heartbeat) and Calf discomfort When: IN 2 WEEKS Meaningful Use Info Meaningful Use Diagnoses (Choose all that apply): Ischemic CVA CVA Therapy Assessed for PT,OT and/or ST?: Yes Ischemic Stroke Antithrombotic order at d/c?: Yes Dx of Atrial fib/flutter?: Yes Anticoagulant at discharge?: Yes Statins at discharge?: Yes Primary Dx Acute Ischemic CVA?: Yes Discharge Plan Admission Admit Date/Time: 07/08/23 11:15 Primary Reason for Your Visit: acute right occipital lobe infarct. Attending Provider: Oscar Neely Primary Care Provider: Sera Lechuga Consulting Providers: Gerard Cole; Sumi Parker; Mary Mejia; Dodie Mustafa; Suzanna Paulino; Juan R Lang; Maryjane Elliott; Víctor Campbell; Hardik Rodríguez; Mally Wilson et; Bladimir Kaiser; Radha Cox; Claude Waller; Mansoor Huang; Quan Dior; John Pizano; Rafa Casillas; Loyda Nieves; Montana Conley Instructions Additional Instructions / Restrictions: Patient can follow-up with outside neurologist Dr. Eugene Grace a lot of the tone. Recommend to follow-up in 2 weeks to 4 weeks. Discussed with the patient and his at the bedside Discharge Orders/Prescriptions Prescriptions: New atorvastatin 40 mg Tablet 40 mg PO QHS 30 Days Qty: 30 3RF Eliquis 5 mg Tablet 5 mg PO BID 30 Days Qty: 60 3RF Rx Instructions: Discontinue if platelet count drops less than 50,000 or hemoglobin less than 8 g% mecobalamin (vitamin B12) 1,000 mcg tablet,chewable 1,000 mcg PO DAILY Qty: 30 2RF Continued tamsulosin 0.4 MG capsule 0.4 mg PO DAILY glucosamine-chondroitin 1 EACH tablet 1 ea PO DAILY krill hdu-uhqgp-2-dha-epa 1 EACH capsule 1 ea PO DAILY multivitamin with folic acid [Thera] 1 TABLET tablet 1 tab PO DAILY Changed ibuprofen 600 MG tablet 400 mg PO Q6H PRN (Reason: Pain) 3 Days Qty: 0 0RF Discontinued aspirin 325 mg tablet 325 mg PO DAILY turmeric-turmeric root extract 1 EACH capsule 1 ea PO DAILY Referrals / Follow Up: Sera Lechuga MD [Primary Care Provider] - Within 1 Week Aldo Tim MD [Non-Staff -Ordering Privileges] - Within 2 Weeks Disposition Disposition (needs filled in before D/C Order can be placed): Home, Self Care Charges/Coding Visit Charges Inpatient E&M: 98406 Disch Hosp >30min
--- NOTE | 2023-07-10 12:53 | CASEMGMT ---
RN PRAVEEN NOTE: Pt being discharged. Script for Eliquis has been e-scribed to [facility] pharmacy. Call placed to Andrey @ [facility] for santos check. Per Andrey, pt has used Eliquis 30-day free trial offer card in the past (2020). Pt has not met his deductible yet, so co-pay for Eliquis would be $547.67. Cost of atorvastatin is $5.70 and Vit B 12 would be $15.39 OTC. RN CM to room. Pt sitting on edge of bed. @ bedside. They were made aware of all of the above and questions answered. Pt and state they are able to afford this. They were made aware they can go on Eliquis website to complete application for financial assistance, if needed. They voice understanding. They deny having any other discharge planning needs or concerns. Larry HOLLAND RN CM
== END 2023-07-10 12:50 | disposition home or self-care (01) | DRG 65 ==
LOC: ED 11:22 → ICU 11:34
PROVIDERS: Admitting Provider Internal Medicine; Emergency Provider Emergency Medicine; PCP Family Medicine; Visit Provider Internal Medicine
DX: I63.9 Cerebral infarction, unspecified (principal); N13.8 Other obstructive and reflux uropathy; H53.462 Homonymous bilateral field defects, left side; I48.0 Paroxysmal atrial fibrillation; M19.90 Unspecified osteoarthritis, unspecified site; Z87.891 Personal history of nicotine dependence; Z79.82 Long term (current) use of aspirin; N40.1 Benign prostatic hyperplasia with lower urinary tract symptoms
CPT/HCPCS: 70450; 70496; 70498; 70551; 71045; 71275; 80048; 80061; 82607; 82746; 82962; 83036; 83735; 84100; 84439; 84443; 84484; 85025; 85610; 85730; 92610; 93005; 93306; 94668; 94762; 97161; 97166; 99283; J3101; J7030; Q9967; A4216; C8929; J3490

== ENCOUNTER → 2023-07-14 | Outpatient (CLI) | payer MEDICARE, OTHER, SELFPAY ==
[2023-07-14 18:58] LABS: PSA,Total- Diagnostic 6.96 ng/mL (0.0-4.0)
== END | disposition home or self-care (01) ==
LOC: BFHLAB 15:34
PROVIDERS: PCP Family Medicine; Visit Provider Urology
DX: R35.1 Nocturia (principal); R97.20 Elevated prostate specific antigen [PSA]
CPT/HCPCS: 36415; 84153

== ENCOUNTER → 2023-08-19 | Outpatient (CLI) | payer MEDICARE, OTHER, SELFPAY ==
[2023-08-19 12:34] LABS: Vitamin B12 711 pg/mL (211-911); Vitamin D,25 Hydroxy 45.6 ng/mL
[2023-08-19 12:37] LABS: AST(SGOT) 22 U/L (15-37); Alanine Aminotransfer ALT/SGPT 31 U/L (16-61); Albumin, Serum 3.7 g/dL (3.2-5.0); Alkaline Phosphatase 62 U/L (45-117); Bilirubin, Direct 0.25 mg/dL (0.00-0.30); Cholesterol 108 mg/dL (200); Globulin 2.9 g/dL (2.2-4.2); High Density Lipoprotein 59 mg/dL; Protein, Total 6.6 g/dL (6.4-8.2); Triglycerides 58 mg/dL; Very Low Density Lipoprotein 12 mg/dL (5-40)
== END | disposition home or self-care (01) ==
LOC: BFHLAB 10:32
PROVIDERS: PCP Family Medicine; Referring Provider Family Medicine; Visit Provider Family Medicine
DX: I63.531 Cerebral infarction due to unspecified occlusion or stenosis of right posterior cerebral artery (principal); E53.8 Deficiency of other specified B group vitamins; E55.9 Vitamin D deficiency, unspecified
CPT/HCPCS: 36415; 80061; 80076; 82306; 82607

== ENCOUNTER → 2024-01-13 | Outpatient (CLI) | payer MEDICARE, OTHER, SELFPAY ==
[2024-01-13 13:46] LABS: PSA,Total- Diagnostic 6.06 ng/mL (0.0-4.0)
== END | disposition home or self-care (01) ==
LOC: BFHLAB 09:42
PROVIDERS: PCP Family Medicine
DX: R97.20 Elevated prostate specific antigen [PSA] (principal)
CPT/HCPCS: 36415; 84153

== ENCOUNTER → 2024-05-24 | Outpatient (CLI) | payer MEDICARE, OTHER, SELFPAY ==
[2024-05-24 15:28] LABS: Absolute Lymphocyte Count 1.66 X10^3/uL (0.83-4.51); Absolute Neutrophil Count 3.9 X10^3/uL (2.0-7.7); Basophil# 0.05 X10^3/uL; Basophil% 0.8 % (0-1); Eosinophil# 0.23 X10^3/uL; Eosinophils% 3.6 % (0-5); Hematocrit 47.4 % (40-54); Hemoglobin 15.1 g/dL (13.0-16.5); Lymphocyte # 1.66 X10^3/ul (0.83-4.51); Lymphocyte % 26.1 % (19-41); Mean Corp Hgb Conc 31.9 g/dL (32-36); Mean Corpuscular Hgb 29.7 pg (27.0-32.0); Mean Corpuscular Volume 93.1 fL (80-94); Monocyte# 0.53 X10^3/uL; Monocyte% 8.3 % (0-10); NRBC Flagged by Analyzer 0 % (0-5); Neutrophil # 3.87 X10^3/uL (2.7-7.7); Neutrophil % 60.9 % (47-70); Platelet Count 227 K/mm3 (150-450); RBC Distribution Width SD 41.2 fl (35.1-43.9); Red Blood Count 5.09 M/mm3 (4.6-6.2); White Blood Count 6.4 K/mm3 (4.4-11.0)
[2024-05-24 15:40] LABS: Vitamin B12 1177 pg/mL (211-911); Vitamin D,25 Hydroxy 39.8 ng/mL
[2024-05-24 15:49] LABS: ALB/GLOB Ratio 1.2 RATIO (0.9-2.4); AST(SGOT) 24 U/L (15-37); Alanine Aminotransfer ALT/SGPT 37 U/L (16-61); Albumin, Serum 3.8 g/dL (3.2-5.0); Alkaline Phosphatase 72 U/L (45-117); Anion Gap 4 (5-15); BUN 17 mg/dL (7-18); BUN/Creat Ratio 16.5 RATIO (10-20); Calcium,Total 9.5 mg/dL (8.5-10.1); Chloride 105 mmol/L (98-107); Cholesterol 111 mg/dL (200); Creatinine, Serum 1.03 mg/dL (0.70-1.30); EST Glomerular Filtration Rate 75 mL/min (>60); Est Glom Filt Rate - Afr Amer 90 mL/min (>60); Globulin 3.1 g/dL (2.2-4.2); Glucose 104 mg/dL (74-106); High Density Lipoprotein 70 mg/dL; Potassium 4.2 mmol/L (3.5-5.1); Protein, Total 6.9 g/dL (6.4-8.2); Sodium Level 139 mmol/L (136-145); Triglycerides 46 mg/dL; Very Low Density Lipoprotein 9 mg/dL (5-40)
== END | disposition home or self-care (01) ==
LOC: BFHLAB 13:06
PROVIDERS: PCP Family Medicine; Referring Provider Family Medicine; Visit Provider Family Medicine
DX: I63.531 Cerebral infarction due to unspecified occlusion or stenosis of right posterior cerebral artery (principal); E53.8 Deficiency of other specified B group vitamins; E55.9 Vitamin D deficiency, unspecified; D64.9 Anemia, unspecified
CPT/HCPCS: 36415; 80053; 80061; 82306; 82607; 85025

== ENCOUNTER → 2024-07-27 | Outpatient (CLI) | payer MEDICARE, OTHER, SELFPAY ==
[2024-07-27 13:12] LABS: PSA,Total- Diagnostic 4.49 ng/mL (0.00-4.00)
== END | disposition home or self-care (01) ==
LOC: BFHLAB 10:07
PROVIDERS: PCP Family Medicine; Visit Provider Urology
DX: R97.20 Elevated prostate specific antigen [PSA] (principal); R35.1 Nocturia; N40.1 Benign prostatic hyperplasia with lower urinary tract symptoms
CPT/HCPCS: 36415; 84153

== ENCOUNTER → 2024-08-23 | Outpatient (CLI) | payer MEDICARE, OTHER, SELFPAY | END | disposition home or self-care (01) | LOC: LABSPEC 15:36 | PROVIDERS: PCP Family Medicine; Referring Provider Urology; Visit Provider Urology | DX: N40.1 Benign prostatic hyperplasia with lower urinary tract symptoms (principal) | CPT/HCPCS: 87077; 87086; 87088; 87186 ==

== ENCOUNTER → 2024-12-02 | Outpatient (CLI) | payer MEDICARE, OTHER, SELFPAY | END | disposition home or self-care (01) | LOC: PSN 08:23 | PROVIDERS: PCP Family Medicine; Referring Provider Internal Medicine Cardiovascular Disease; Visit Provider Internal Medicine Cardiovascular Disease | DX: I48.91 Unspecified atrial fibrillation (principal) | CPT/HCPCS: 93225; 93226 ==

== ENCOUNTER → 2025-03-17 | Outpatient (CLI) | payer MEDICARE, OTHER, SELFPAY ==
[2025-03-17 10:32] LABS: PSA,Total- Diagnostic 5.65 ng/mL (0.00-4.00)
== END | disposition home or self-care (01) ==
LOC: LAB.FUTURE 09:09 → LAB 09:11
PROVIDERS: PCP Family Medicine; Referring Provider Urology; Visit Provider Urology
DX: R97.20 Elevated prostate specific antigen [PSA] (principal)
CPT/HCPCS: 36415; 84153